=== PATIENT | female | born 1985 | race Caucasian/White ===

== ENCOUNTER 2020-09-18 18:45 | Inpatient (IN) | payer OTHER, SELFPAY ==
--- NOTE | ~2020-09-18 | XR_ITS ---
EXAMINATION: XR CHEST CLINICAL INFORMATION: Fever and cough COMPARISON: 01/03/2019 TECHNIQUE: Frontal view of the chest was obtained. FINDINGS: No significant abnormality is noted involving the heart, lungs, mediastinum, bony thorax or soft tissues. A bone island is seen in the left humeral head. XR/XR chest 1V IMPRESSION: Normal chest.
--- NOTE | ~2020-09-18 | NM_ITS ---
Indication: Upper abdominal pain, left upper quadrant pain EXAMINATION: HIDA scan. 5 mCi technetium mebrofenin. Imaging over the right upper quadrant. Correlating with CT dated 09/19/2020. Uptake by the liver is seen. There is some retention within the hepatic parenchyma on the 60 minute image. There is ductal activity by 5 minutes. Gallbladder activity is seen by 7 minutes. Bowel activity is seen by 12 minutes. NM/NM hepatobiliary wo pharm IMPRESSION: Visualization of the gallbladder. Therefore no scintigraphic evidence for cystic duct obstruction. There is felt to be retention in the hepatic parenchyma at 60 minutes.. Hepatocellular disease would be a consideration.
--- NOTE | ~2020-09-18 | CT_ITS ---
EXAMINATION: CT ABDOMEN AND PELVIS WITH CONTRAST CLINICAL INFORMATION: Pyelonephritis. Rule out obstruction.. COMPARISON: No pertinent prior studies are available for comparison TECHNIQUE: Multidetector volumetric imaging was performed from the lung bases to the pubic symphysis without contrast. Sagittal and coronal reformatted images were obtained on the technologist workstation. Total exam dose-length product 590 mGy-cm FINDINGS: VISUALIZED CHEST: Right basilar atelectasis. No pericardial or pleural effusion. LIVER, GALLBLADDER, AND BILIARY TREE: Liver spans 20.8 cm craniocaudal. No focal lesion seen. No intrahepatic biliary duct dilatation. The gallbladder is partially distended. There is gallbladder wall thickening/pericholecystic fluid. Echogenicity within the gallbladder lumen may reflect sludge or bile. No radiopaque gallstones are seen. PANCREAS: Homogeneous attenuation. No acute inflammatory changes seen. SPLEEN: Unremarkable. ADRENAL GLANDS: Unremarkable. KIDNEYS AND URETERS: 2 mm nonobstructing calculus in the midpole right kidney. Faint densities in the region of the renal pyramids bilaterally, could reflect medullary nephrocalcinosis. Stable amorphous density in the posterior aspect right kidney, 6 mm, could represent a cyst partially calcified calculus.. No hydronephrosis. The nondistended ureters are difficult to follow distally, but no calculi are identified in the expected course of the ureters. There is [id number] left perinephric stranding. GASTROINTESTINAL TRACT: Nonobstructive bowel gas pattern. No acute process identified associated with the bowel loops. Appendix appears unremarkable. Small ascites in the abdomen or pelvis. ABDOMINAL WALL: No hernia seen. LYMPHOVASCULAR STRUCTURES: No adenopathy is identified. BLADDER: No focal mass or wall thickening seen. No bladder calculi. PELVIC VISCERA: Within normal limits OSSEOUS STRUCTURES: No acute or suspicious osseous abnormality. CT/CT kidney stone IMPRESSION: 1. Right renal 2 mm nonobstructing calculus. Stable amorphous subtle calcification in the right kidney as well. Faint densities in the region of the renal pedicles bilaterally, could reflect medullary calcinosis. No hydronephrosis. No ureteral calculi seen. [id number] left perinephric stranding. 2. Hepatomegaly. 3. There is gallbladder wall thickening/pericholecystic fluid. Probable bile/sludge in the lumen.No radiodense calculi seen. Findings raise the possibility of cholecystitis. Recommend further evaluation with ultrasound.
[2020-09-18 19:11] VITALS: BP 87/57; BP 89/57; PULSE 102; PULSE 96; RESP 15; TEMP 38.5; O2SAT 98; BMI 25.8
--- NOTE | 2020-09-18 19:38 | ED_ITS ---
HPI - Fever General Chief Complaint: Fever Stated Complaint: fever,chills Time Seen by Provider: 09/18/20 19:35 Source: patient Mode of arrival: ambulatory Limitations: no limitations History of Present Illness HPI Narrative: 35-year-old female came in for evaluation of fever, and left flank pain. 35-year-old female with history of fever and infection came in with generalized body ache, generalized joint ache, fever, chills, left flank pain, patient with history of urinary tract infections in the past. Patient also been having generalized body ache, generalized fever, flu-like symptoms. Declined exposure to somebody is known to be sick call Related Data Home Medications Medication Instructions Recorded Confirmed aripiprazole 1 tab PO DAILY 09/18/20 09/18/20 clonazepam 1 tab PO QID PRN 09/18/20 09/18/20 diazepam 1 tab PO BID PRN 09/18/20 09/18/20 duloxetine 2 cap PO DAILY 09/18/20 09/18/20 fluticasone propionate [Flovent 2 puff INHALATION BID 09/18/20 09/18/20 HFA] lisdexamfetamine [Vyvanse] 1 cap PO QAM 09/18/20 09/18/20 oxcarbazepine 1 tab PO BID 09/18/20 09/18/20 quetiapine 200 tab PO BEDTIME 09/18/20 09/18/20 Allergies Allergy/AdvReac Type Severity Reaction Status Date / Time buprenorphine [From SUBOXONE] Allergy Intermediate ANXIETY Verified 09/18/20 19:21 naloxone [From SUBOXONE] Allergy Intermediate ANXIETY Verified 09/18/20 19:21 cefaclor [From CECLOR] Allergy Unknown UNKNOWN Verified 09/18/20 19:21 sulfamethoxazole Allergy Unknown UNKNOWN Verified 09/18/20 19:21 [From BACTRIM] trimethoprim [From BACTRIM] Allergy Unknown UNKNOWN Verified 09/18/20 19:21 Review of Systems Review of Systems: All other systems are reviewed and are negative Constitutional: Reports as per HPI and Reports no additional constitutional complaints Eyes: Reports as per HPI and Reports no additional eye complaints Reports system reviewed and no additional complaints, except as documented Cardiovascular: Reports as per HPI and Reports no additional cardiovascular complaints Respiratory: Reports as per HPI and Reports no additional respiratory complaints Gastrointestinal: Reports as per HPI and Reports no additional gastrointestinal complaints Genitourinary: Reports no additional female genitourinary complaints Musculoskeletal: Reports no additional musculoskeletal complaints Skin/Breast: Reports system reviewed and no additional complaints, except as docu Psychiatric: Reports no additional psychiatric complaints Endocrine: Reports no additional endocrine complaints Hematologic/Lymphatic: Reports no additional hematologic/lymphatic complaints Allergic/Immunologic: Reports no additional allergic/immunologic complaints Reports system reviewed and no additional complaints, except as documented and Reports Abnormal speech present [facility] Past Medical History Medical History Anxiety Bipolar 1 disorder Substance abuse Social History Social History Smoking Status: Never smoker Use of substances other than those prescribed or required for medical reasons: Yes Substance Use Type: Crack/Cocaine and Heroin Substance Use Frequency: Chronic Longstanding Last Used Substance: Hours (ago) Any prior treatment program specific to substance use: Yes Advance Directives: No Advance Directives Information Provided: Yes Physical Exam Vital Signs: Vital Signs: Last Vital Signs Temp 98.0 F 09/18/20 23:02 Pulse 92 09/18/20 23:02 Resp 93 H 09/18/20 23:02 BP 85/49 L 09/18/20 23:02 Pulse Ox 100 09/18/20 23:02 Body Mass Index 25.8 Vital signs have been reviewed as appeared to be correct. Blood pressure low. Heart rate elevated. Respiration rate normal. Temperature febrile. Oxygen saturation normal. Appearance: Alert. Oriented X3. No acute distress. Head: Normal external exam. Normocephalic. Atraumatic. No [place] signs noted. No raccoon eyes noted Eyes: PERRLA. EOMI. Conjunctiva and sclera normal. Eyelids normal. ENT: TM's Normal. Pharynx normal. Uvula midline. Moist mucous membranes. No trismus noted. No drooling noted. No muffled voice noted. Neck: Normal inspection. Neck supple. FROM. No adenopathy. Thyroid Normal. No meningeal signs. No neck mass noted. CVS: Normal heart rate and rhythm. Heart sound normal. No murmurs noted. Pulses normal throughout. Respiratory: No respiratory distress. Painless inspiration. Breath sounds normal. No wheezes/rales/rhonchi noted. Chest nontender. No accessory muscle usage noted or decreased air movement noted. Abdomen: Soft and nontender. Bowel sounds normal in all 4 quadrants. No dist ention noted. No organomegaly noted. No visible injury noted. Back: Left CVA tenderness. Full range of motion noted. Skin: Skin warm and dry. Normal skin color. Normal skin turgor. No rashes/le sions/lacerations noted. Extremities: No lower extremity edema. Extremities exhibit normal range of motion. Extremities nontender. Neuro: Oriented X 3. No motor deficit. No sensory deficit. Reflexes normal. Course Course Course Narrative: Assessment and plan. 35-year-old female came in with fever found to have left pyelonephritis and meeting criteria for SIRS. IV fluids/IV antibiotic/admit. Reevaluation(s) Reevaluation #1: Patient received 30 cc/kg of normal saline, still borderline hypotensive, lactic acid within normal, patient met criteria for SIRS with hypotension making the patient meeting criteria for severe sepsis. Because the hypotension patient will not be able to be on the floor will admit to ICU, the case discussed with Dr. hernandez who will admit the patient to ICU. I spent 60 minutes providing critical care service to the patient, this including time spent at the bedside to evaluate the patient, reassess the patient, monitoring vital signs, review labs, and radiographic studies, counseling the patient/family, discussing the case with consultants, disposition the patient. Time: 23:12 MDM - Fever Lab Data Attestation: I reviewed the patient's lab results. Result diagrams: 09/18/20 20:03 09/18/20 20:03 Labs: Lab Results 09/18/20 09/18/20 09/18/20 Range/Units 19:36 20:03 20:03 WBC 25.8 H (4.8-10.8) X10*3/uL RBC 4.51 (4.20-5.50) X10*6/uL Hgb 12.5 (12.0-16.0) g/dl Hct 38.3 (37-47) % MCV 84.9 (80-98) fL MCH 27.7 (27.0-33.0) pg MCHC 32.6 (31.0-35.0) g/dl RDW 12.3 (11.0-16.0) % Plt Count 239 (160-400) X10*3/uL MPV 11.3 (9.4-12.3) fL Immature Gran % (Auto) 1.5 H (0.0-0.4) % Neut % (Auto) 85.2 H (45-73) % Lymph % (Auto) 3.9 L (20-40) % Smyth % (Auto) 8.2 (2-11) % Eos % (Auto) 0.9 (0-4) % Baso % (Auto) 0.3 (0-2) % Lymph # (Auto) 1.0 L (1.2-4.9) X10*3/uL Smyth # (Auto) 2.1 H (0.1-1.2) X10*3/uL Eos # (Auto) 0.2 (0.0-0.4) X10*3/uL Baso # (Auto) 0.1 (0.0-0.2) X10*3/uL Abs Immat Gran (auto) 0.39 H (0.00-0.03) X10*3/uL Absolute Neuts (auto) 22.0 H (2.0-8.3) X10*3/uL Absolute Nucleated RBC 0.000 (0.0-0.012) X10*3/uL Nucleated RBC % (auto) 0.0 (0.0-0.2) /100WBC Smear Tech's Comments VERIFIED Sodium 134 L (135-145) mmol/L Potassium 3.6 (3.3-5.1) mmol/L Chloride 102 (96-108) mmol/L Carbon Dioxide 24 (22-29) mmol/L Anion Gap 12 (12-20) BUN 13 (9-16) mg/dL Creatinine 1.11 (0.5-1.4) mg/dL Estim Creat Clear Calc 72.8 Estimated GFR 56 Random Glucose 122 H (60-115) mg/dL Lactic Acid (0.5-2.0) mmol/L Calcium 8.4 (8.4-10.2) mg/dL Total Bilirubin 0.5 (0.0-1.0) mg/dL Direct Bilirubin 0.3 (0.0-0.5) mg/dL AST 13 (5-31) U/L ALT 9 (0-31) U/L Alkaline Phosphatase 68 (39-117) U/L Total Protein 6.9 (6.5-8.0) g/dL Albumin 3.8 (3.5-5.0) g/dL Lipase 24 (8-78) U/L Urine Color YELLOW Urine Appearance CLOUDY Urine pH 5.5 (5.0-8.0) Ur Specific [place] 1.025 (1.005-1.025) Urine Protein 2+ H (NEG-TRACE) MG/DL Urine Glucose (UA) NEG (NEG) MG/DL Urine Ketones NEG (NEG) MG/DL Urine Blood 1+ H (NEG) Urine Nitrite NEG (NEG) Ur Leukocyte Esterase 2+ H (NEG) Urine RBC 0-2 (0) /HPF Urine WBC 30-49 H (0-4) /HPF Ur Squamous Epith Cells 1+ /LPF Urine Bacteria 3+ /LPF Coronavirus (PCR) (Negative) Influenza Type A (PCR) (Negative) Influenza Type B (PCR) (Negative) RSV RNA Qual (PCR) (Negative) 09/18/20 09/18/20 Range/Units 20:03 20:03 WBC (4.8-10.8) X10*3/uL RBC (4.20-5.50) X10*6/uL Hgb (12.0-16.0) g/dl Hct (37-47) % MCV (80-98) fL MCH (27.0-33.0) pg MCHC (31.0-35.0) g/dl RDW (11.0-16.0) % Plt Count (160-400) X10*3/uL MPV (9.4-12.3) fL Immature Gran % (Auto) (0.0-0.4) % Neut % (Auto) (45-73) % Lymph % (Auto) (20-40) % Smyth % (Auto) (2-11) % Eos % (Auto) (0-4) % Baso % (Auto) (0-2) % Lymph # (Auto) (1.2-4.9) X10*3/uL [place]th # (Auto) (0.1-1.2) X10*3/uL Eos # (Auto) (0.0-0.4) X10*3/uL Baso # (Auto) (0.0-0.2) X10*3/uL Abs Immat Gran (auto) (0.00-0.03) X10*3/uL Absolute Neuts (auto) (2.0-8.3) X10*3/uL Absolute Nucleated RBC (0.0-0.012) X10*3/uL Nucleated RBC % (auto) (0.0-0.2) /100WBC Smear Tech's Comments Sodium (135-145) mmol/L Potassium (3.3-5.1) mmol/L Chloride (96-108) mmol/L Carbon Dioxide (22-29) mmol/L Anion Gap (12-20) BUN (9-16) mg/dL Creatinine (0.5-1.4) mg/dL Estim Creat Clear Calc Estimated GFR Random Glucose (60-115) mg/dL Lactic Acid 1.5 (0.5-2.0) mmol/L Calcium (8.4-10.2) mg/dL Total Bilirubin (0.0-1.0) mg/dL Direct Bilirubin (0.0-0.5) mg/dL AST (5-31) U/L ALT (0-31) U/L Alkaline Phosphatase (39-117) U/L Total Protein (6.5-8.0) g/dL Albumin (3.5-5.0) g/dL Lipase (8-78) U/L Urine Color Urine Appearance Urine pH (5.0-8.0) Ur Specific [place] (1.005-1.025) Urine Protein (NEG-TRACE) MG/DL Urine Glucose (UA) (NEG) MG/DL Urine Ketones (NEG) MG/DL Urine Blood (NEG) Urine Nitrite (NEG) Ur Leukocyte Esterase (NEG) Urine RBC (0) /HPF Urine WBC (0-4) /HPF Ur Squamous Epith Cells /LPF Urine Bacteria /LPF Coronavirus (PCR) NEGATIVE (Negative) Influenza Type A (PCR) NEGATIVE (Negative) Influenza Type B (PCR) NEGATIVE (Negative) RSV RNA Qual (PCR) NEGATIVE (Negative) Imaging Data Chest x-ray: Radiologist's impression: No acute pathology. Discharge Plan Discharge Clinical Impression: Pyelonephritis Patient Disposition: Admitted As Inpatient
[2020-09-18 19:44] LABS: Glucose Urine UA NEG (NEG); Leukocyte Esterase Urine 2+ (NEG); Nitrite Urine NEG (NEG); PH 5.5 (5.0-8.0); Specific Gravity - Urine 1.025 (1.005-1.025); Urine Blood 1+ (NEG); Urine Ketones NEG (NEG); Urine Protein 2+ MG/DL (NEG-TRACE)
[2020-09-18 19:46] LABS: Appearance Urine CLOUDY; Color Urine YELLOW
[2020-09-18 19:57] LABS: Bacteria Urine 3+ /LPF; RBC Urine 0-2 /HPF (0); Squamous Epithelial Cell Urine 1+ /LPF; WBC Urine 30-49 /HPF (0-4)
[2020-09-18] MEDS: cefTRIAXone sodium 1 GM in 0.9 % Sodium Chloride 50 ML IV (20:10)
[2020-09-18] MEDS: 0.9 % Sodium Chloride 1,000 ML 999 ML IVCONT (20:10)
[2020-09-18 20:12] LABS: Basophils Absolute Auto 0.1 X10*3/uL (0.0-0.2); Basophils Percent Auto 0.3 % (0-2); Eosinophils Absolute Auto 0.2 X10*3/uL (0.0-0.4); Eosinophils Percent Auto 0.9 % (0-4); Hematocrit 38.3 % (37-47); Hemoglobin 12.5 g/dl (12.0-16.0); Imm Gran Abs Auto 0.39 X10*3/uL (0.00-0.03); Imm Gran Pct Auto 1.5 % (0.0-0.4); Lymphocytes Percent Auto 3.9 % (20-40); MANUAL DIFF FLAG SCAN; Mean Corpuscular HGB Conc 32.6 g/dl (31.0-35.0); Mean Corpuscular Hemoglobin 27.7 pg (27.0-33.0); Mean Corpuscular Volume 84.9 fL (80-98); Mean Platelet Volume 11.3 fL (9.4-12.3); Monocytes Absolute Auto 2.1 X10*3/uL (0.1-1.2); Monocytes Percent Auto 8.2 % (2-11); Neutrophils Percent Auto 85.2 % (45-73); Platelet Count 239 X10*3/uL (160-400); Red Blood Count 4.51 X10*6/uL (4.20-5.50); Red Cell Distribution Width 12.3 % (11.0-16.0); SCAN SMEAR FLAG 1; White Blood Count 25.8 X10*3/uL (4.8-10.8)
--- NOTE | 2020-09-18 20:19 | PC.NURSE ---
Patient lined, lab'd and medication given per emar as noted.
[2020-09-18 20:29] LABS: SLIDE REVIEW VERIFIED
[2020-09-18 20:35] LABS: Lactic Acid 1.5 mmol/L (0.5-2.0)
[2020-09-18 20:40] LABS: Alanine Aminotransferase 9 U/L (0-31); Albumin Level 3.8 g/dL (3.5-5.0); Alkaline Phosphatase 68 U/L (39-117); Anion Gap 12 (12-20); Aspartate Amino Transferase 13 U/L (5-31); Bilirubin Direct 0.3 mg/dL (0.0-0.5); Bilirubin Total 0.5 mg/dL (0.0-1.0); Blood Urea Nitrogen 13 mg/dL (9-16); Calcium 8.4 mg/dL (8.4-10.2); Carbon Dioxide 24 mmol/L (22-29); Chloride 102 mmol/L (96-108); Creatinine Clr Calc Pharmacy 72.8; Estimated Glomerular Filt Rate 56; Glucose Random 122 mg/dL (60-115); Lipase 24 U/L (8-78); Potassium 3.6 mmol/L (3.3-5.1); Sodium 134 mmol/L (135-145); Total Protein 6.9 g/dL (6.5-8.0)
[2020-09-18 20:50] LABS: Influenza A PCR NEGATIVE (Negative); Influenza B PCR NEGATIVE (Negative); Resp Syncy Virus RNA Qual PCR NEGATIVE (Negative); SARS COV2 PCR INHOUSE NEGATIVE (Negative)
--- NOTE | 2020-09-18 21:21 | PC.NURSE ---
PATIENT'S MOTHER CALLS AT THIS TIME FOR UPDATE. ANU BLAKE INDISPOSED. CALL BACK NUMBER LEFT WITH THIS US AND PATIENT'S MOTHER EXPECTING CALL BACK. ANABELLE TYSON
[2020-09-18 21:27] VITALS: BP 90/63; PULSE 99; RESP 15; O2SAT 98
[2020-09-18] MEDS: 0.9 % Sodium Chloride 2,177.25 ML 2177.25 ML IVCONT (21:51)
[2020-09-18 22:57] VITALS: BP 85/49; PULSE 92; RESP 93; TEMP 36.7; O2SAT 100
[2020-09-18 23:02] VITALS: BP 85/49; PULSE 92; RESP 93; TEMP 36.7; O2SAT 100
[2020-09-18 23:30] VITALS: BP 79/43; PULSE 92; RESP 15; O2SAT 98
[2020-09-18] MEDS: Ketorolac Tromethamine 15 MG/ML VIAL IV (23:30)
--- NOTE | 2020-09-18 23:36 | P.HPCC_ITS ---
History of Present Illness Date of Service: 09/18/20 Chief Complaint: Fever Patient is a 35-year-old female with a past medical history anxiety, bipolar disorder and substance use disorder of injecting heroin and smoking crack, last use was approximately noontime on 09/18, who presented to the ER earlier this evening stating she had 1 day of fever, chills, left back and flank pain, body aches, nausea and flu-like symptoms. Patient denies vomiting, shortness of breath, chest pain, abdominal pain, or sick/COVID contacts. 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 In the emergency department, the patient was found to be hypotensive in the 70s to 80s systolic, temp 101.3F, WBC 25.8, urine positive for UA as well as opiates, acetaminophen, benzos and cocaine. Patient tested as COVID negative. Patient was given sepsis fluids and antibiotics, patient's blood pressure was still low despite fluid resuscitation. Lactic acid 1.5. Upon my exam, pt's systolic BP was in the 70's, she was asymptomatic and reporti ng 7/10 back/left flank pain. She reports last injection of heroin was at noon time today. She is very concerned about withdrawing while she is here. Physical exam is unremarkable sans slight suprapubic tenderness. She states she takes benzos, our records indicate at her last admission she was taking 10 mg diazepam b.i.d. but she states she does not take it every day because it makes her feel like a zombie. Will admit to the ICU for management of hypotension/sepsis. Review of Systems Review of Systems: Yes all other systems are reviewed and are negative [facility] Past Medical History Medical History Anxiety Bipolar 1 disorder Substance abuse Social History Social History (Updated 09/18/20 @ 23:45 by Verenice Mcdowell PA-C) Alcohol intake: never Smoking Status: Never smoker Use of substances other than those prescribed or required for medical reasons: Yes Substance Use Type: Crack/Cocaine and Heroin Substance Use Frequency: Chronic Longstanding Last Used Substance: Hours (ago) Any prior treatment program specific to substance use: Yes Advance Directives: No Advance Directives Information Provided: Yes Meds Allergies Allergy/AdvReac Type Severity Reaction Status Date / Time buprenorphine [From SUBOXONE] Allergy Intermediate ANXIETY Verified 09/18/20 19:21 naloxone [From SUBOXONE] Allergy Intermediate ANXIETY Verified 09/18/20 19:21 cefaclor [From CECLOR] Allergy Unknown UNKNOWN Verified 09/18/20 19:21 sulfamethoxazole Allergy Unknown UNKNOWN Verified 09/18/20 19:21 [From BACTRIM] trimethoprim [From BACTRIM] Allergy Unknown UNKNOWN Verified 09/18/20 19:21 Home Medications Medication Instructions Recorded Confirmed Last Taken Type aripiprazole 1 tab PO DAILY 09/18/20 09/18/20 Unknown History clonazepam 1 tab PO QID PRN 09/18/20 09/18/20 Unknown History diazepam 1 tab PO BID PRN 09/18/20 09/18/20 Unknown History duloxetine 2 cap PO DAILY 09/18/20 09/18/20 Unknown History fluticasone propionate [Flovent 2 puff INHALATION BID 09/18/20 09/18/20 Unknown History HFA] lisdexamfetamine [Vyvanse] 1 cap PO QAM 09/18/20 09/18/20 Unknown History oxcarbazepine 1 tab PO BID 09/18/20 09/18/20 Unknown History quetiapine 200 tab PO BEDTIME 09/18/20 09/18/20 Unknown History Physical Exam Vital Signs: Vital Signs: Last Vital Signs Temp 98.0 F 09/18/20 23:02 Pulse 92 09/18/20 23:02 Resp 93 H 09/18/20 23:02 BP 85/49 L 09/18/20 23:02 Pulse Ox 100 09/18/20 23:02 Body Mass Index 25.8 Const: General: cooperative, healthy appearing, no acute distress, well developed and tired appearing (teary 2/2 pain) Nutritional Appearance: average body habitus Orientation/consciousness: patient oriented x3 Limitations: no limitations HENMT: Head: Yes normal to inspection Eyes: General: appearance normal, both eyes and all related structures Neck: Neck: Yes normal visual inspection and Yes full ROM Resp: Effort & Inspection: normal respiratory effort and able to speak in complete sentences Auscultation: clear to auscultation bilaterally Cardio: Rate: regular rate Rhythm: regular rhythm Heart sounds: normal S1 and S2 GI: Inspection: Yes normal to inspection Palpation (GI): Soft to palpation and nontender Skin: General skin exam: no rashes or lesions noted Neuro: General: patient oriented x3 Extrem: General: Yes normal to inspection and Yes no pedal edema Results Labs CBC and Chem 7: 09/18/20 20:03 09/18/20 20:03 Labs: Laboratory Results - last 24 hr 09/18/20 09/18/20 09/18/20 19:36 20:03 20:03 MCV 84.9 MCH 27.7 MCHC 32.6 RDW 12.3 Plt Count 239 MPV 11.3 Immature Gran % (Auto) 1.5 H Neut % (Auto) 85.2 H Lymph % (Auto) 3.9 L [place]are % (Auto) 8.2 Eos % (Auto) 0.9 Baso % (Auto) 0.3 Lymph # (Auto) 1.0 L [place] # (Auto) 2.1 H Eos # (Auto) 0.2 Baso # (Auto) 0.1 Abs Immat Gran (auto) 0.39 H Absolute Neuts (auto) 22.0 H Absolute Nucleated RBC 0.000 Nucleated RBC % (auto) 0.0 Smear Tech's Comments VERIFIED Anion Gap 12 Estim Creat Clear Calc 72.8 Estimated GFR 56 Random Glucose 122 H Lactic Acid Calcium 8.4 Total Bilirubin 0.5 Direct Bilirubin 0.3 AST 13 ALT 9 Alkaline Phosphatase 68 Total Protein 6.9 Albumin 3.8 Lipase 24 Urine Color YELLOW Urine Appearance CLOUDY Urine pH 5.5 Ur Specific [place] 1.025 Urine Protein 2+ H Urine Glucose (UA) NEG Urine Ketones NEG Urine Blood 1+ H Urine Nitrite NEG Ur Leukocyte Esterase 2+ H Urine RBC 0-2 Urine WBC 30-49 H Ur Squamous Epith Cells 1+ Urine Bacteria 3+ Coronavirus (PCR) Influenza Type A (PCR) Influenza Type B (PCR) RSV RNA Qual (PCR) 09/18/20 09/18/20 20:03 20:03 MCV MCH MCHC RDW Plt Count MPV Immature Gran % (Auto) Neut % (Auto) Lymph % (Auto) Dare % (Auto) Eos % (Auto) Baso % (Auto) Lymph # (Auto) Dare # (Auto) Eos # (Auto) Baso # (Auto) Abs Immat Gran (auto) Absolute Neuts (auto) Absolute Nucleated RBC Nucleated RBC % (auto) Smear Tech's Comments Anion Gap Estim Creat Clear Calc Estimated GFR Random Glucose Lactic Acid 1.5 Calcium Total Bilirubin Direct Bilirubin AST ALT Alkaline Phosphatase Total Protein Albumin Lipase Urine Color Urine Appearance Urine pH Ur Specific [place] Urine Protein Urine Glucose (UA) Urine Ketones Urine Blood Urine Nitrite Ur Leukocyte Esterase Urine RBC Urine WBC Ur Squamous Epith Cells Urine Bacteria Coronavirus (PCR) NEGATIVE Influenza Type A (PCR) NEGATIVE Influenza Type B (PCR) NEGATIVE RSV RNA Qual (PCR) NEGATIVE Imaging Radiologist's Impressions: Impressions Chest X-Ray 09/18/20 19:35 IMPRESSION: Normal chest. Assessment and Plan (1) Pyelonephritis: Status: Acute Pt given 1gm ceftriaxone in ED, will continue Q24H (2) Hypotension: Status: Acute Will continue IV fluids and add felicita-synephrine until BP stabilized. (3) Heroin abuse: Status: Acute
[2020-09-19] VITALS (30 sets, daily range): BP systolic 82–121; BP diastolic 47–83; PULSE 71–106; RESP 13–43; TEMP 36.2–38.7; O2SAT 96–100; BMI 29.5; BMI 30.9
[2020-09-19 00:13] LABS: Amphetamine Screen Urine Not Detected (Not Detect); Barbiturates, Urine Not Detected (Not Detect); Benzodiazepines Screen Urine POSITIVE (Not Detect); Cannabinoid Screen Urine Not Detected (Not Detect); Cocaine Screen Urine POSITIVE (Not Detect); Opiate Screen Urine POSITIVE (Not Detect); Phencyclidine Screen Urine Not Detected (Not Detect)
[2020-09-19] MEDS: Lactated Ringers 1,000 ML 150 ML IVCONT ×4 (00:48→20:06)
[2020-09-19] MEDS: Phenylephrine HCL 20 MG in 0.9 % Sodium Chloride 250 ML 16.46 MG IVCONT (00:49)
[2020-09-19] MEDS: HYDROmorphone HCl 0.5 MG/0.5 ML SYRINGE IVPUSH ×3 (01:58→20:07)
[2020-09-19] MEDS: DULoxetine HCl 60 MG CAPSULE.DR PO ×3 (01:59→22:53)
[2020-09-19] MEDS: OXcarbazepine 300 MG TABLET 600 MG PO ×3 (02:10→20:10)
[2020-09-19] MEDS: QUEtiapine Fumarate 200 MG TABLET PO (02:10)
[2020-09-19 05:54] LABS: Basophils Absolute Auto 0.1 X10*3/uL (0.0-0.2); Basophils Percent Auto 0.4 % (0-2); Hematocrit 37.1 % (37-47); Hemoglobin 12.1 g/dl (12.0-16.0); Imm Gran Abs Auto 1.71 X10*3/uL (0.00-0.03); Lymphocytes Absolute Auto 1.9 X10*3/uL (1.2-4.9); Lymphocytes Percent Auto 5.7 % (20-40); MANUAL DIFF FLAG SCAN; Mean Corpuscular HGB Conc 32.6 g/dl (31.0-35.0); Mean Corpuscular Hemoglobin 28.3 pg (27.0-33.0); Mean Corpuscular Volume 86.9 fL (80-98); Mean Platelet Volume 11.9 fL (9.4-12.3); Monocytes Absolute Auto 2.5 X10*3/uL (0.1-1.2); Monocytes Percent Auto 7.4 % (2-11); Neutrophils Absolute Auto 27.8 X10*3/uL (2.0-8.3); Neutrophils Percent Auto 81.5 % (45-73); Platelet Count 242 X10*3/uL (160-400); Red Blood Count 4.27 X10*6/uL (4.20-5.50); Red Cell Distribution Width 12.6 % (11.0-16.0); SCAN SMEAR FLAG 1
[2020-09-19 05:58] LABS: White Blood Count 34.1 X10*3/uL (4.8-10.8)
[2020-09-19 06:20] LABS: Anion Gap 14 (12-20); Blood Urea Nitrogen 14 mg/dL (9-16); Calcium 7.6 mg/dL (8.4-10.2); Carbon Dioxide 20 mmol/L (22-29); Chloride 107 mmol/L (96-108); Creatinine Clr Calc Pharmacy 90.5; Estimated Glomerular Filt Rate > 60; Glucose Random 92 mg/dL (60-115); Magnesium 1.8 mg/dL (1.6-2.6); Phosphorus 2.6 mg/dL (2.7-4.5); Potassium 4.1 mmol/L (3.3-5.1); Sodium 137 mmol/L (135-145)
[2020-09-19] MEDS: Phenylephrine HCL 20 MG in 0.9 % Sodium Chloride 250 ML 27.43 MG IVCONT (06:20)
--- NOTE | 2020-09-19 06:29 | PC.NURSE ---
ADMIT TO 260-1 APPROX 00:30...AWAKE...ALERT..ORIENTED X3...SPEECH CLEAR....NSR..NO ECTOPY..RESPIRATIONS EASY...SAO2 99-100% ROOM AIR...SBP REMAINED 80'S DESPITE PREVIOUS IV BOLUSES IN ER DEPT...STARTED LR 150 CC/HR AND NEOSYNEPHRINE STARTED/TITRATED TO 0.5 MCG/KG/MIN...SBP 100'S-110'S AWAKE WITH PRESSOR...SBP 90'S ASLEEP...C/O BILATERAL FLANK PAIN AT ADMIT DESPITE PREVIOUS RECEIPT TORADOL IN ER DEPT...ALSO C/O CHRONIC ANXIETY...MEDICATED DILAUDID 0.5 MG IV X1 AND RECEIVED SEROQUEL/CYMBALTA/TRILEPTAL PER ICU PA...SLEPT X3 HOURS..AWAKE..ALERT THIS AM...HNV...OOB TO COMMODE W/O VOID...BACK TO BED..BLADDER SCANNED 425ml...also c/o persistant fland/abdominal 8-9/10 pain...repeat dilaudid 0.5mg iv given...PA AWARE OF BLADDER SCAN RESULTS...SMITH CATHETER ORDERED TO BE INSERTED IF REMAINS UNABLE TO VOID NEXT FEW HOURS...PATIENT REQUESTED TO DELAY SMITH INSERTION AT PRESENT BUT WILL ACCEPT IF REMAINS UNABLE TO VOID...AM WBC=34.1...PA/ AWARE
[2020-09-19 07:29] LABS: SLIDE REVIEW VERIFIED
[2020-09-19] MEDS: Ketorolac Tromethamine 15 MG/ML VIAL IVPUSH ×2 (07:48→16:31)
[2020-09-19] MEDS: levoFLOXacin/D5W 750 MG/150 ML PIGGYBACK 100 MG IV (09:03)
[2020-09-19] MEDS: HYDROmorphone HCl 1 MG/ML SYRINGE IVPUSH ×2 (09:14→13:15)
--- NOTE | 2020-09-19 09:54 | PC.NURSE ---
Pt started on IV levaquin this mroning. While running or ~5min pt noticed some redness at IV site and up arm. IV site is new from this AM, nothing else had run in. Levaquin immediately stopped. IV site assessed, Meaured [id number] red rashy area with some hives noted. notified - d/c the abx. Will continuously monitor site
--- NOTE | 2020-09-19 10:59 | PC.NURSE ---
pt mother [place] # [phone] - pt AO and will check with pt before any info shared, but wanted record of # on file
[2020-09-19] MEDS: cefTRIAXone sodium 2 GM in 0.9 % Sodium Chloride 50 ML IV (11:30)
[2020-09-19 11:36] LABS: Alanine Aminotransferase 9 U/L (0-31); Albumin Level 3.1 g/dL (3.5-5.0); Alkaline Phosphatase 71 U/L (39-117); Aspartate Amino Transferase 15 U/L (5-31); Bilirubin Direct 0.4 mg/dL (0.0-0.5); Bilirubin Total 0.6 mg/dL (0.0-1.0); Total Protein 5.8 g/dL (6.5-8.0)
--- NOTE | 2020-09-19 12:41 | P.CONGS_ITS ---
History of Present Illness Consult details Consult date: 09/19/20 Reason for consult: abdominal pain (Abnormal gallbladder imaging) Narrative: This is a 35-year-old female who presented to the emergency department with a 3 day history of a severe back pain primarily in the left flank radiating around the left upper quadrant. She describes generalized body aches, fever and chills as well as malaise. She also has experienced nausea without vomiting. She does not describe dysuria. She reports having similar pain once in the past related to her kidney. She has a history of substance use, in remission. In the emergency department, urinalysis was done and was consistent with urinary tract infection. Exam findings were consistent with pyelonephritis and she was admitted for treatment. She was noted to have hypotension. White blood count was 25.8 and is further elevated this morning at 34.1. Liver function studies are normal. A CT scan of the abdomen and pelvis was obtained and revealed thickening of the gallbladder wall without clear evidence of gallstones. Review of Systems Constitutional: Constitutional: Reports chills and Reports fever(s) Comments: Malaise ENT: Denies dizziness and Denies neck pain Cardiovascular: Cardiovascular: Denies chest pain, Denies palpitations and Denies dyspnea Respiratory: Respiratory: Denies cough and Denies dyspnea Gastrointestinal: Gastrointestinal: Reports as per HPI Genitourinary: Genitourinary: Reports flank pain (left) Musculoskeletal: Musculoskeletal: Reports no additional musculoskeletal complaints and Denies neck pain Neurologic: Denies dizziness Psychiatric: Comments: depression, anxiety Endocrine: Endocrine: Denies palpitations Hematologic/Lymphatic: Hematologic/Lymphatic: Reports no additional hematologic/lymphatic complaints [facility] Past Medical History Medical History Anxiety Bipolar 1 disorder Substance abuse Social History Social History (Updated 09/18/20 @ 23:45 by Verenice Mcdowell PA-C) Alcohol intake: never Smoking Status: Never smoker Use of substances other than those prescribed or required for medical reasons: Yes Substance Use Type: Crack/Cocaine and Heroin Substance Use Frequency: Chronic Longstanding Last Used Substance: Hours (ago) Currently Displaying Signs/Symptoms of Drug Intoxication Withdrawal: No Any prior treatment program specific to substance use: Yes Advance Directives: No Advance Directives Information Provided: Yes Do you have thoughts of harming others: None Do you have a plan to hurt others: No Plan Meds Allergies Allergy/AdvReac Type Severity Reaction Status Date / Time buprenorphine [From SUBOXONE] Allergy Intermediate ANXIETY Verified 09/18/20 19:21 levofloxacin [From Levaquin] Allergy Intermediate Hives Verified 09/19/20 11:14 naloxone [From SUBOXONE] Allergy Intermediate ANXIETY Verified 09/18/20 19:21 cefaclor [From CECLOR] Allergy Unknown UNKNOWN Verified 09/18/20 19:21 sulfamethoxazole Allergy Unknown UNKNOWN Verified 09/18/20 19:21 [From BACTRIM] trimethoprim [From BACTRIM] Allergy Unknown UNKNOWN Verified 09/18/20 19:21 Active Medications: Current Medications Generic Name Dose Route Start Last Admin Trade Name Freq PRN Reason Stop Dose Admin Duloxetine HCl 60 mg 09/19/20 01:20 09/19/20 09:07 Duloxetine Hcl 60 Mg Capsule. PO 60 mg DAILY SEBAS Administration Hydromorphone HCl 1 mg 09/19/20 08:23 09/19/20 09:14 Hydromorphone Hcl 1 Mg/Ml Syringe IVPUSH 1 mg Q4H PRN Administration Pain, Severe (Pain Scale 7-10) Lactated Ringer's 1,000 mls @ 150 mls/hr 09/18/20 23:45 09/19/20 12:30 Lr IVCONT 150 mls/hr .Q6H40M SEBAS Administration Phenylephrine HCl 20 mg/ 252 mls @ 0 mls/hr 09/18/20 23:45 09/19/20 10:47 Sodium Chloride IVCONT 0.3 mcg/kg/min .Q0M SEBAS 16.46 mls/hr Titration Protocol Per Protocol Ceftriaxone Sodium 2 gm/ 50 mls @ 100 mls/hr 09/19/20 11:15 09/19/20 12:28 Sodium Chloride IV Infused Q24H SEBAS Infusion Metronidazole 1,000 mg in 200 mls @ 100 mls/hr 09/19/20 12:00 09/19/20 12:04 Flagyl IV 100 mls/hr Q12H SEBAS Administration Ketorolac Tromethamine 15 mg 09/19/20 07:09 09/19/20 07:48 Ketorolac Tromethamine 15 Mg/Ml Vial IVPUSH 15 mg Q6H PRN Administration Pain, Severe (Pain Scale 7-10) Oxcarbazepine 600 mg 09/19/20 01:15 09/19/20 09:07 Oxcarbazepine 300 Mg Tablet PO 600 mg BID SEBAS Administration Home Medications Medication Instructions Recorded Confirmed Last Taken Type aripiprazole 1 tab PO DAILY 09/18/20 09/18/20 Unknown History clonazepam 1 tab PO QID PRN 09/18/20 09/18/20 Unknown History diazepam 1 tab PO BID PRN 09/18/20 09/18/20 Unknown History duloxetine 2 cap PO DAILY 09/18/20 09/18/20 Unknown History fluticasone propionate [Flovent 2 puff INHALATION BID 09/18/20 09/18/20 Unknown History HFA] lisdexamfetamine [Vyvanse] 1 cap PO QAM 09/18/20 09/18/20 Unknown History oxcarbazepine 1 tab PO BID 09/18/20 09/18/20 Unknown History quetiapine 150 mg PO BEDTIME 09/18/20 09/19/20 Unknown History Physical Exam Vital Signs: Vital Signs: Last Vital Signs Temp 98.1 F 09/19/20 12:31 Pulse 96 09/19/20 12:31 Resp 28 H 09/19/20 12:31 BP 101/57 L 09/19/20 12:31 Pulse Ox 100 09/19/20 12:31 Body Mass Index 30.9 Const: General: cooperative and alert Orientation/consciousness: patient oriented x3 HENMT: Head: Yes normal to inspection Ears: hearing grossly normal bilaterally Neck: Neck: Yes normal visual inspection Resp: Effort & Inspection: normal respiratory effort Auscultation: clear to auscultation bilaterally Cardio: Rate: regular rate Rhythm: regular rhythm GI: Other: soft, nondistended, tender LUQ ands flank Rectal Exam - Female: deferred Skin: Other: normal color, warm and dry Neuro: General: patient oriented x3 Results Labs Result diagrams: 09/19/20 05:30 09/19/20 05:30 Labs: Abnormal lab results 09/18/20 09/18/20 09/18/20 Range/Units 19:36 19:36 20:03 WBC 25.8 H (4.8-10.8) X10*3/uL Immature Gran % (Auto) 1.5 H (0.0-0.4) % Neut % (Auto) 85.2 H (45-73) % Lymph % (Auto) 3.9 L (20-40) % Lymph # (Auto) 1.0 L (1.2-4.9) X10*3/uL [place] # (Auto) 2.1 H (0.1-1.2) X10*3/uL Abs Immat Gran (auto) 0.39 H (0.00-0.03) X10*3/uL Absolute Neuts (auto) 22.0 H (2.0-8.3) X10*3/uL Sodium (135-145) mmol/L Carbon Dioxide (22-29) mmol/L Random Glucose (60-115) mg/dL Calcium (8.4-10.2) mg/dL Phosphorus (2.7-4.5) mg/dL Total Protein (6.5-8.0) g/dL Albumin (3.5-5.0) g/dL Urine Protein 2+ H (NEG-TRACE) MG/DL Urine Blood 1+ H (NEG) Ur Leukocyte Esterase 2+ H (NEG) Urine WBC 30-49 H (0-4) /HPF Urine Opiates Screen POSITIVE H (Not Detect) U Benzodiazepines Scrn POSITIVE H (Not Detect) Urine Cocaine Screen POSITIVE H (Not Detect) 09/18/20 09/19/20 09/19/20 Range/Units 20:03 05:30 05:30 WBC 34.1 H* (4.8-10.8) X10*3/uL Immature Gran % (Auto) 5.0 H (0.0-0.4) % Neut % (Auto) 81.5 H (45-73) % Lymph % (Auto) 5.7 L (20-40) % Lymph # (Auto) (1.2-4.9) X10*3/uL [place] # (Auto) 2.5 H (0.1-1.2) X10*3/uL Abs Immat Gran (auto) 1.71 H (0.00-0.03) X10*3/uL Absolute Neuts (auto) 27.8 H (2.0-8.3) X10*3/uL Sodium 134 L (135-145) mmol/L Carbon Dioxide 20 L (22-29) mmol/L Random Glucose 122 H (60-115) mg/dL Calcium 7.6 L D (8.4-10.2) mg/dL Phosphorus 2.6 L (2.7-4.5) mg/dL Total Protein 5.8 L (6.5-8.0) g/dL Albumin 3.1 L (3.5-5.0) g/dL Urine Protein (NEG-TRACE) MG/DL Urine Blood (NEG) Ur Leukocyte Esterase (NEG) Urine WBC (0-4) /HPF Urine Opiates Screen (Not Detect) U Benzodiazepines Scrn (Not Detect) Urine Cocaine Screen (Not Detect) Short CBC 09/18/20 09/19/20 Range/Units 20:03 05:30 WBC 25.8 H 34.1 H* (4.8-10.8) X10*3/uL Hgb 12.5 12.1 (12.0-16.0) g/dl Hct 38.3 37.1 (37-47) % Plt Count 239 242 (160-400) X10*3/uL BMP 09/18/20 09/19/20 20:03 05:30 Sodium 134 L 137 Potassium 3.6 4.1 Chloride 102 107 Carbon Dioxide 24 20 L BUN 13 14 Creatinine 1.11 0.95 Calcium 8.4 7.6 L D Liver Function 09/18/20 09/19/20 Range/Units 20:03 05:30 Total Bilirubin 0.5 0.6 (0.0-1.0) mg/dL Direct Bilirubin 0.3 0.4 (0.0-0.5) mg/dL AST 13 15 (5-31) U/L ALT 9 9 (0-31) U/L Alkaline Phosphatase 68 71 (39-117) U/L Albumin 3.8 3.1 L (3.5-5.0) g/dL Urine 09/18/20 Range/Units 19:36 Urine Color YELLOW Urine Appearance CLOUDY Urine pH 5.5 (5.0-8.0) Ur Specific [place] 1.025 (1.005-1.025) Urine Protein 2+ H (NEG-TRACE) MG/DL Urine Glucose (UA) NEG (NEG) MG/DL All other labs normal. Assessment and Plan (1) Abnormal findings on diagnostic imaging of abdomen: Status: Acute 35-year-old female with several-day history of back and left upper quadrant abdominal pain, fever chills and nausea. Urinalysis is suggestive of urinary tract infection. Exam findings are suggestive of pyelonephritis on left. CT of the abdomen and pelvis demonstrates an abnormal appearing gallbladder. She does not have accompanying right upper quadrant tenderness or pain. Further evaluation will be obtained with HIDA scan.
[2020-09-19] MEDS: HYDROmorphone HCl 2 MG/ML VIAL IVPUSH ×3 (13:48→23:59)
--- NOTE | 2020-09-19 15:01 | MHC.CM.PN ---
Addendum entered by Karen Rowe 09/19/20 15:15: Review of EMR notes pt has an active hx of substance use (heroin, cocaine) Will f/u should pt need a CARE team consult for cessation information and treatment options Original Note: Pt in ICU with hypotension and pyelonephritis: met with pt briefly as she was on her way to diagnostic testing: Pt was independent prior to admission: no adaptive equipment used: Has transportation. No additional services anticipated but CM will follow for any changes.
--- NOTE | 2020-09-19 16:07 | PC.NURSE ---
Addendum entered by Arlen Smith RN 09/19/20 18:53: temp down to 97.1 at 1845 Original Note: Pt off phenylephrine at 15:48 as MAP >65 per order. Will closely monitor BP q30min MD aware of drip status Also pt temp 101.7 at 1600 VS - pt had three blankets on - 2 removed - MD would like to keep pt NPO at this moment, aware of temp
--- NOTE | 2020-09-19 17:13 | PM.CCPN ---
Subjective Subjective Date of Service: 09/19/20 Interval History: 35-year-old female opiate dependence which is current presents with with back and abdominal pain with markedly elevated fever white count with left shift with clear-cut evidence of urinary tract infection and probable pyelonephritis CT scan negative for an obstructive issue no evidence of hydronephrosis but there was thickened gallbladder wall with small amount of pericholecystic fluid but HIDA scan showed normally functioning gallbladder so again this appears to be pyelonephritis and current lactate is normal at 1.5 and she had acute stage II renal failure also improving with with hydration and initially was dependent on Phil-Synephrine which has since been weaned off and simply with volume replacement blood pressure is 102/57 oxygen saturation 99% with heart rate 99 and pain is controlled utilizing combinations of Toradol 15 mg and Dilaudid 2 mg Physical Exam Vital Signs: Vital Signs: Last Vital Signs Temp 101.7 F H 09/19/20 15:35 Pulse 106 H 09/19/20 16:56 Resp 19 09/19/20 16:56 BP 102/57 L 09/19/20 16:56 Pulse Ox 97 09/19/20 16:56 Body Mass Index 30.9 Const: Other: Awake alert oriented and nonfocal neurologically Cardiac exam with normal S1 normal S2 no gallops no neck vein distension and good bilateral carotid upstrokes Chest is clear Abdomen is soft is no guarding No again a megaly skin is intact no wounds no livedo no acrocyanosis Objective Data Labs CBC & Chem 7: 09/19/20 05:30 09/19/20 05:30 Labs: Laboratory Results - last 24 hr 09/18/20 09/18/20 09/18/20 19:36 19:36 20:03 WBC 25.8 H RBC 4.51 Hgb 12.5 Hct 38.3 MCV 84.9 MCH 27.7 MCHC 32.6 RDW 12.3 Plt Count 239 MPV 11.3 Immature Gran % (Auto) 1.5 H Neut % (Auto) 85.2 H Lymph % (Auto) 3.9 L [place] % (Auto) 8.2 Eos % (Auto) 0.9 Baso % (Auto) 0.3 Lymph # (Auto) 1.0 L [place] # (Auto) 2.1 H Eos # (Auto) 0.2 Baso # (Auto) 0.1 Abs Immat Gran (auto) 0.39 H Absolute Neuts (auto) 22.0 H Absolute Nucleated RBC 0.000 Nucleated RBC % (auto) 0.0 Smear Tech's Comments VERIFIED Sodium Potassium Chloride Carbon Dioxide Anion Gap BUN Creatinine Estim Creat Clear Calc Estimated GFR Random Glucose Lactic Acid Calcium Phosphorus Magnesium Total Bilirubin Direct Bilirubin AST ALT Alkaline Phosphatase Total Protein Albumin Lipase Urine Color YELLOW Urine Appearance CLOUDY Urine pH 5.5 Ur Specific [place] 1.025 Urine Protein 2+ H Urine Glucose (UA) NEG Urine Ketones NEG Urine Blood 1+ H Urine Nitrite NEG Ur Leukocyte Esterase 2+ H Urine RBC 0-2 Urine WBC 30-49 H Ur Squamous Epith Cells 1+ Urine Bacteria 3+ Urine Opiates Screen POSITIVE H Ur Barbiturates Screen Not Detected Ur Phencyclidine Scrn Not Detected Ur Amphetamines Screen Not Detected U Benzodiazepines Scrn POSITIVE H Urine Cocaine Screen POSITIVE H U Marijuana (THC) Screen Not Detected Coronavirus (PCR) Influenza Type A (PCR) Influenza Type B (PCR) RSV RNA Qual (PCR) 09/18/20 09/18/20 09/18/20 20:03 20:03 20:03 WBC RBC Hgb Hct MCV MCH MCHC RDW Plt Count MPV Immature Gran % (Auto) Neut % (Auto) Lymph % (Auto) [place] % (Auto) Eos % (Auto) Baso % (Auto) Lymph # (Auto) [place] # (Auto) Eos # (Auto) Baso # (Auto) Abs Immat Gran (auto) Absolute Neuts (auto) Absolute Nucleated RBC Nucleated RBC % (auto) Smear Tech's Comments Sodium 134 L Potassium 3.6 Chloride 102 Carbon Dioxide 24 Anion Gap 12 BUN 13 Creatinine 1.11 Estim Creat Clear Calc 72.8 Estimated GFR 56 Random Glucose 122 H Lactic Acid 1.5 Calcium 8.4 Phosphorus Magnesium Total Bilirubin 0.5 Direct Bilirubin 0.3 AST 13 ALT 9 Alkaline Phosphatase 68 Total Protein 6.9 Albumin 3.8 Lipase 24 Urine Color Urine Appearance Urine pH Ur Specific [place] Urine Protein Urine Glucose (UA) Urine Ketones Urine Blood Urine Nitrite Ur Leukocyte Esterase Urine RBC Urine WBC Ur Squamous Epith Cells Urine Bacteria Urine Opiates Screen Ur Barbiturates Screen Ur Phencyclidine Scrn Ur Amphetamines Screen U Benzodiazepines Scrn Urine Cocaine Screen U Marijuana (THC) Screen Coronavirus (PCR) NEGATIVE Influenza Type A (PCR) NEGATIVE Influenza Type B (PCR) NEGATIVE RSV RNA Qual (PCR) NEGATIVE 09/19/20 09/19/20 05:30 05:30 WBC 34.1 H* RBC 4.27 Hgb 12.1 Hct 37.1 MCV 86.9 MCH 28.3 MCHC 32.6 RDW 12.6 Plt Count 242 MPV 11.9 Immature Gran % (Auto) 5.0 H Neut % (Auto) 81.5 H Lymph % (Auto) 5.7 L [place] % (Auto) 7.4 Eos % (Auto) 0.0 Baso % (Auto) 0.4 Lymph # (Auto) 1.9 [place] # (Auto) 2.5 H Eos # (Auto) 0.0 Baso # (Auto) 0.1 Abs Immat Gran (auto) 1.71 H Absolute Neuts (auto) 27.8 H Absolute Nucleated RBC 0.000 Nucleated RBC % (auto) 0.0 Smear Tech's Comments VERIFIED Sodium 137 Potassium 4.1 Chloride 107 Carbon Dioxide 20 L Anion Gap 14 BUN 14 Creatinine 0.95 Estim Creat Clear Calc 90.5 Estimated GFR > 60 Random Glucose 92 Lactic Acid Calcium 7.6 L D Phosphorus 2.6 L Magnesium 1.8 Total Bilirubin 0.6 Direct Bilirubin 0.4 AST 15 ALT 9 Alkaline Phosphatase 71 Total Protein 5.8 L Albumin 3.1 L Lipase Urine Color Urine Appearance Urine pH Ur Specific [place] Urine Protein Urine Glucose (UA) Urine Ketones Urine Blood Urine Nitrite Ur Leukocyte Esterase Urine RBC Urine WBC Ur Squamous Epith Cells Urine Bacteria Urine Opiates Screen Ur Barbiturates Screen Ur Phencyclidine Scrn Ur Amphetamines Screen U Benzodiazepines Scrn Urine Cocaine Screen U Marijuana (THC) Screen Coronavirus (PCR) Influenza Type A (PCR) Influenza Type B (PCR) RSV RNA Qual (PCR) Progress Note: A&P Assessment and plan (1) Hypotension: Status: Acute (2) Pyelonephritis: Status: Acute (3) Heroin abuse: Status: Acute Assessment and Plan: The plan therefore is to continue with ceftriaxone and metronidazole because on Levaquin she started immediately to develop a rash as it was infusing Time Spent With Patient Time: Total time spent is greater than 50% in coordination of care (as documented) at patient's floor/unit and/or counseling patient: Total time spent with greater than 50% in coordination of care (as documented) at patient's floor/unit and/or counseling patient:: 30
--- NOTE | 2020-09-19 19:33 | PM.EVENT ---
Event Note Date of Service: 09/19/20 Event Note: HIDA scan showed no evidence of gallbladder disease. Discussed with patient. On Tx for pyelonephritis
[2020-09-19] MEDS: Acetaminophen 325 MG TABLET 650 MG PO (20:10)
--- NOTE | 2020-09-19 23:47 | PC.NURSE ---
Assumed care at 7pm - Patient c/o continued pain in left flank, radiating to mid abd. Rufina PA aware - medicated w/ additional 0.5 mg IVP dilaudid & tylenol - patient fell asleep after, reported relief. Patient remains off of Phil - bp within parameters. Home meds clarified - Cymbalta changed to BID, discontinued clonazepam from med rec. Transferred up to [facility] at approx 2235 in bed to 254 with all belongings. 1 assist to bathroom once on IMC to bathroom. Report given to Corinne BLAKE. Patient educated about change of plan of care.
[2020-09-19] MEDS: Lactated Ringers 500 ML 1000 ML IVCONT (23:52)
[2020-09-19] MEDS: diazePAM 10 MG TABLET PO (23:54)
[2020-09-20] VITALS (13 sets, daily range): BP systolic 85–141; BP diastolic 49–91; PULSE 65–98; RESP 14–23; TEMP 36.4–37.1; O2SAT 97–100; BMI 31.0
[2020-09-20] MEDS: Lactated Ringers 500 ML IVCONT (02:18)
--- NOTE | 2020-09-20 02:56 | PC.NURSE ---
Pt BP noted to be low 84/47 . Hospitalist notified and ordered 1L LR bolus. Took BP after bolus, still low at 85/54. Hospitalist notified and ordered additional bolus 500mL of LR. BP 95/49 after second bolus. Patient assessed, asymptomatic, no complaints. Will continue to closely monitor vitals.
[2020-09-20] MEDS: HYDROmorphone HCl 2 MG/ML VIAL IVPUSH ×5 (05:20→20:29)
[2020-09-20] MEDS: Acetaminophen 325 MG TABLET 650 MG PO (05:23)
[2020-09-20] MEDS: Ketorolac Tromethamine 15 MG/ML VIAL IVPUSH ×3 (05:31→18:10)
[2020-09-20] MEDS: Lactated Ringers 1,000 ML 150 ML IVCONT ×2 (06:20→13:45)
[2020-09-20] MEDS: DULoxetine HCl 60 MG CAPSULE.DR PO ×2 (08:35→20:36)
[2020-09-20] MEDS: OXcarbazepine 300 MG TABLET 600 MG PO ×2 (08:35→20:36)
[2020-09-20] MEDS: cefTRIAXone sodium 2 GM in 0.9 % Sodium Chloride 50 ML IV (10:48)
--- NOTE | 2020-09-20 11:30 | MHC.RECOVRN ---
35 year old female presented to [facility] ED on 09/18 due to kidney pain and fever. Pt was admitted to ICU due to hypotension/sepsis. Pt transferred to [facility] this morning, 09/20.? T/w met with pt in 454 after pt had disclosed JESSICA to RN. Pt began using heroin at age 28 and crack cocaine at age 34. Pt states I've had more clean time than time when I was using. Pt reports pattern of 4 months in recovery, returning to use for 3 weeks, 4 months in recovery, etc. Pt states It's always because something happens and I have an emotional breakdown that I start using again. Pt currently using 1-2 bundles heroin, IV, x 1 month. Pt also reports crack cocaine, inh, x 1 year.? Pt has been in treatment multiple times including [address], residential programs, and receiving MOUD, Pt reports residential treatment and AA meetings are not helpful. Pt has found success with Vivitrol and is interested in restarting. Pt has own apartment. 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 ? Currently, pts goal for today is to have pain under control. Pt reports pain as 8/10 after current Dilaudid dose. Provider in room while t/w was interviewing pt and informed pt that pain medication would be addressed.? T/w will follow up with pt later today to further discuss MOUD and plan for recovery after d/c.?
--- NOTE | 2020-09-20 11:43 | MHC.CM.PN ---
per no dc date ast this time plan remains home no services
--- NOTE | 2020-09-20 15:56 | MHC.RECOVRN ---
T/w met with pt to f/u regarding MOUD, specifically naltrexone. Pt is not interested in methadone or Suboxone. Pt is currently utilizing Dilaudid to address pain r/t acute medical issues. It was discussed that last dose of any short acting opiate must be at least 3-5 days prior to beginning naltrexone. ATS level of care was discussed as a possibility after dc from [facility]. No decision has been made as to whether this will be pursued or not. Pt not interested in [facility] and [facility] will not be accepting patients due to change in owners. Pt stated I've also detoxed at home before, I could do that. Pt was given information about the [facility]. Pt agreeable to continue pain medication at this time and to continue discussion and planning around starting naltrexone. T/w will continue to follow for dc planning needs as well as f/u regarding MOUD. Case was also discussed with Theodora Duncan APRN.
--- NOTE | 2020-09-20 17:50 | HO.PM.IMPN ---
Subjective Subjective Date of Service: 10/29/20 Interval History: abd pain Review of Systems Patient still has has well as abdominal pain. denies any chest pain or shortness of breath or fever or chills Physical Exam Vital Signs: Vital Signs: Last Vital Signs Temp 98.7 F 09/20/20 15:13 Pulse 72 09/20/20 17:06 Resp 20 09/20/20 17:02 BP 133/78 09/20/20 17:06 Pulse Ox 99 09/20/20 15:13 Body Mass Index 31.0 physical exam: Cvs: [id number], [id number] , no murmur res: clear to auscultation ,no rhonchii or wheezing abd: no rebound or guarding ,still has abd pain, bs present. ext pulses present , no cyanosis neuro: axo3 , nonfocal. Objective Data Current Medications Generic Name Dose Route Start Last Admin Trade Name Freq PRN Reason Stop Dose Admin Acetaminophen 650 mg 09/19/20 15:45 09/20/20 05:23 Acetaminophen 325 Mg Tablet PO 650 mg Q6H PRN Administration Fever Diazepam 10 mg 09/19/20 23:26 09/19/20 23:54 Diazepam 10 Mg Tablet PO 10 mg BID PRN Administration Anxiety Duloxetine HCl 60 mg 09/19/20 21:00 09/20/20 08:35 Duloxetine Hcl 60 Mg Capsule. PO 60 mg BID SEBAS Administration Hydromorphone HCl 2 mg 09/20/20 12:54 09/20/20 17:02 Hydromorphone Hcl 2 Mg/Ml Vial IVPUSH 2 mg Q3H PRN Administration Pain, Severe (Pain Scale 7-10) Lactated Ringer's 1,000 mls @ 150 mls/hr 09/18/20 23:45 09/20/20 13:45 Lr IVCONT 150 mls/hr .Q6H40M SEBAS Administration Ceftriaxone Sodium 2 gm/ 50 mls @ 100 mls/hr 09/19/20 11:15 09/20/20 11:29 Sodium Chloride IV Infused Q24H SEBAS Infusion Metronidazole 1,000 mg in 200 mls @ 100 mls/hr 09/19/20 12:00 09/20/20 13:51 Flagyl IV Infused Q12H SEBAS Infusion Ketorolac Tromethamine 15 mg 09/19/20 07:09 09/20/20 11:43 Ketorolac Tromethamine 15 Mg/Ml Vial IVPUSH 15 mg Q6H PRN Administration Pain, Severe (Pain Scale 7-10) Oxcarbazepine 600 mg 09/19/20 01:15 09/20/20 08:35 Oxcarbazepine 300 Mg Tablet PO 600 mg BID SEBAS Administration Quetiapine Fumarate 150 mg 09/19/20 23:30 09/20/20 06:17 Quetiapine Fumarate 50 Mg Tablet PO Not Given BEDTIME SEBAS Labs CBC & Chem 7: 09/19/20 05:30 09/19/20 05:30 Microbiology Microbiology Results: Microbiology 09/18/20 20:04 Blood - Venous Blood Culture - Preliminary No growth after 24 hours. 09/18/20 20:03 Blood - Venous Blood Culture - Preliminary No growth after 24 hours. Assessment and Plan (1) Abnormal findings on diagnostic imaging of abdomen: Status: Acute (2) Hypotension: Status: Acute (3) Pyelonephritis: Status: Acute Assessment and Plan: 1. Patient initially admitted to ICU: probable sepsis/ hypotension- probably related to UTI. Patient is currently on IV ceftriaxone and metronidazole -? suspicion of gallbladder related infection also initially- but seen by surgery:HIDA scan showed no evidence of gallbladder disease. patient continued to have abdominal pain but says that better than yesterday but still required pain medication added bowel regimen has leukocytosis, no fever now will monitor CBC and BMP in the morning.
[2020-09-20] MEDS: Docusate Sodium 100 MG CAPSULE PO (20:36)
[2020-09-20] MEDS: diazePAM 10 MG TABLET PO (20:37)
[2020-09-20] MEDS: QUEtiapine Fumarate 50 MG TABLET 150 MG PO (20:37)
[2020-09-20] MEDS: oxyCODONE HCl Immed Release 5 MG TABLET PO (21:22)
[2020-09-22 06:52] LABS: Codeine, Ur 93 ng/mL (<50); Hydrocodone, Ur NEGATIVE ng/mL (<50); Hydromorphone, Ur NEGATIVE ng/mL (<50); Morphine, Ur 9081 ng/mL (<50); Norhydrocodone, Ur NEGATIVE ng/mL (<50); Noroxycodone, Ur NEGATIVE ng/mL (<50); Oxycodone, Ur NEGATIVE ng/mL (<50); Oxymorphone, Ur NEGATIVE ng/mL (<50)
--- NOTE | 2021-05-27 12:31 | P.DS_ITS ---
DS: Providers Provider Date of Service: 09/21/20 Date of discharge: 09/21/20 Primary care physician: Meng Velasquez MD DS: Diagnosis Discharge Diagnosis (1) Sepsis: Status: Acute (2) UTI (urinary tract infection): Status: Acute (3) Left against medical advice: Status: Acute DS: Summary Hospital Course Hospital Course: Patient initially admitted to ICU:? probable sepsis/ hypotension- probably related to UTI. ? Patient was being treated with IV antibiotics, patient subsequently eloped on 09/21/20 (please see nursing discharge Assessment for further information ) Time Spent with Patient Time attestation: Total time spent providing and/or coordinating discharge services: Discharge coordination time: Less than 30 minutes Quality: Stroke Does the patient have a stroke diagnosis?: No Physical Exam Verdana 4l Vital Signs: Verdana 4d Verdana 4d Vital Signs: Verdana 4d Verdana 4Bd Last Vital Signs Verdana 4d Cnc Cutting Operator New 4d Cnc Cutting Operator New 4d Temp 98.1 F 12/12/20 09:02 Cnc Cutting Operator New 4d Pulse 97 12/12/20 09:02 Cnc Cutting Operator New 4d Resp 16 12/12/20 09:02 BP 140/72 H 12/12/20 09:02 Pulse Ox 99 12/12/20 09:02 BMI result Body Mass Index 29.0 patient eloped . DS: Data Data Completed and Pending Labs on day of discharge: CBC & Chem 7: 09/19/20 05:30? 09/19/20 05:30? Microbiology Microbiology Results: Microbiology 09/18/20 20:04 ? Blood - Venous ? Blood Culture - Preliminary ? No growth after 24 hours. 09/18/20 20:03 ? Blood - Venous ? Blood Culture - Preliminary ? No growth after 24 hours Discharge Plan Discharge Patient Disposition: Left Against Medical Advice Discharge Diagnosis: sepsis /uti Referrals: Kwame Berumen MD [Primary Care Provider] - Discharge Medications: No Action oxcarbazepine 600 mg tablet 1 tab PO BID 0RF Flovent HFA 220 mcg/actuation HFA aerosol inhaler 2 puff inhalation BID 0RF diazepam 10 mg tablet 1 tab PO BID PRN (Reason: Anxiety) 0RF aripiprazole 15 mg tablet 1 tab PO DAILY 0RF duloxetine 60 mg capsule,delayed release(DR/EC) 2 cap PO DAILY 0RF quetiapine 50 mg tablet 150 mg PO BEDTIME 0RF Vyvanse 70 mg capsule 1 cap PO QAM 0RF minocycline 100 mg capsule 100 mg PO BID Qty: 20 0RF tobramycin 0.3 % drops 1 drp ophthalmic-Left Q4H Qty: 5 0RF ketorolac [Acular] 0.5 % drops 1 drp ophthalmic (eye) QID Qty: 5 0RF Rx Instructions: left eye cyclobenzaprine 5 mg tablet 5 mg PO TID Qty: 9 0RF ibuprofen 800 mg tablet 800 mg PO Q8H 10 Days Qty: 30 0RF Discharge Orders: Discharge Order (Routine); Ordered 07/16/21 Ordered By: Luep Thorne Care Plan Goals: patient eloped Health Concerns: patient eloped. Plan of Treatment: patient eloped Assessment: patient eloped Discharge Date/Time: 09/20/20 21:45
== END 2020-09-20 21:45 | disposition left against medical advice (07) | DRG 720 ==
LOC: HO.ED 21:06 → HO.ICU 23:52 → HO.IMC 09-19 21:00
PROVIDERS: Physician Assistant; Surgery; Admitting Provider Internal Medicine Cardiovascular Disease; Emergency Provider Emergency Medicine; PCP Internal Medicine; Visit Provider Internal Medicine Cardiovascular Disease
DX: A41.9 Sepsis, unspecified organism (principal); I95.9 Hypotension, unspecified; F11.20 Opioid dependence, uncomplicated; N12 Tubulo-interstitial nephritis, not specified as acute or chronic; Z20.822 Contact with and (suspected) exposure to COVID-19; Z88.2 Allergy status to sulfonamides; Z79.52 Long term (current) use of systemic steroids; Z79.899 Other long term (current) drug therapy
CPT/HCPCS: 0241U; 36415; 71045; 74176; 78226; 80048; 80076; 80307; 80364; 80365; 81001; 83605; 83690; 83735; 84100; 85025; 87040; 96365; 99285; A9537; J0696; J1170; J1885; J1956; J2370

== ENCOUNTER 2020-12-12 08:43 | Emergency (ER) | payer OTHER, SELFPAY ==
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
[2020-12-12 09:02] VITALS: BP 140/72; PULSE 97; RESP 16; TEMP 36.7; O2SAT 99; BMI 29.0
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
--- NOTE | 2021-05-27 12:31 | P.DS_ITS ---
DS: Providers Provider Date of Service: 09/21/20 Date of discharge: 09/21/20 Primary care physician: Meng Velasquez MD DS: Diagnosis Discharge Diagnosis (1) Sepsis: Status: Acute (2) UTI (urinary tract infection): Status: Acute (3) Left against medical advice: Status: Acute DS: Summary Hospital Course Hospital Course: This discharge summary is for admission Date of Service is 09/21/2020 Patient was admitted to the ICU for Sepsis with hypotension secondary to UTI. She required neosynephrine in the ICU. She was treated with IV anbitiotics and fluids in addition to this. She was transferred out of the ICU once she stabliized. 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 Time Spent with Patient Time attestation: Total time spent providing and/or coordinating discharge services: Discharge coordination time: Less than 30 minutes Quality: Stroke Does the patient have a stroke diagnosis?: No Physical Exam Vital Signs: Vital Signs: Last Vital Signs Temp 98.1 F 12/12/20 09:02 Pulse 97 12/12/20 09:02 Resp 16 12/12/20 09:02 BP 140/72 H 12/12/20 09:02 Pulse Ox 99 12/12/20 09:02 BMI result Body Mass Index 29.0 patient eloped . DS: Data Data Completed and Pending Labs on day of discharge: CBC & Chem 7: 09/19/20 05:30? 09/19/20 05:30? Microbiology Microbiology Results: Microbiology 09/18/20 20:04 ? Blood - Venous ? Blood Culture - Preliminary ? No growth after 24 hours. 09/18/20 20:03 ? Blood - Venous ? Blood Culture - Preliminary ? No growth after 24 hours Discharge Plan Discharge Clinical Impression: Contusion Patient Disposition: Home, Self-Care Instructions: Muscle Strain (ED) Additional Instructions: take antibiotics as directed [id number] Motrin for pain Prescriptions: New minocycline 100 mg capsule 100 mg PO BID Qty: 20 RF: 0 No Action oxcarbazepine 600 mg tablet 1 tab PO BID RF: 0 Flovent HFA 220 mcg/actuation HFA aerosol inhaler 2 puff inhalation BID RF: 0 diazepam 10 mg tablet 1 tab PO BID PRN (Reason: Anxiety) RF: 0 aripiprazole 15 mg tablet 1 tab PO DAILY RF: 0 duloxetine 60 mg capsule,delayed release(DR/EC) 2 cap PO DAILY RF: 0 quetiapine 50 mg tablet 150 mg PO BEDTIME RF: 0 Vyvanse 70 mg capsule 1 cap PO QAM RF: 0 tobramycin 0.3 % drops 1 drp ophthalmic-Left Q4H Qty: 5 RF: 0 ketorolac [Acular] 0.5 % drops 1 drp ophthalmic (eye) QID Qty: 5 RF: 0 cyclobenzaprine 5 mg tablet 5 mg PO TID Qty: 9 RF: 0 ibuprofen 800 mg tablet 800 mg PO Q8H 10 Days Qty: 30 RF: 0 Interventions: ED Discharge Assessment Last Done: 12/12/20 10:57 Discharge Date/Time: 12/12/20 11:09
== END 2020-12-12 11:09 | disposition home or self-care (01) ==
PROVIDERS: Emergency Provider Emergency Medicine Emergency Medical Services; PCP Physical Medicine & Rehabilitation
DX: T14.8XXA Other injury of unspecified body region, initial encounter (principal); L03.221 Cellulitis of neck; V43.52XA Car driver injured in collision with other type car in traffic accident, initial encounter; Y93.9 Activity, unspecified; Y92.410 Unspecified street and highway as the place of occurrence of the external cause; Y99.9 Unspecified external cause status
CPT/HCPCS: 73000; 99283; 99284

== ENCOUNTER 2021-03-02 20:22 | Emergency (ER) | payer OTHER, SELFPAY ==
[2021-03-02 20:25] VITALS: BP 120/84; PULSE 105; RESP 16; TEMP 36.1; O2SAT 98; BMI 28.2
[2021-03-02] MEDS: Tetracaine HCl/PF 0.5% Oph Sol 4 ML DROPS 3 DROP EYE-LEFT (21:51)
[2021-03-02] MEDS: Tobramycin Sulfate 0.3% Sol Op 5 ML BTL 2 DROP EYE-LEFT (21:54)
[2021-03-02] MEDS: Fluorescein Sodium STRIP 1 STRIP EYE-LEFT (21:57)
--- NOTE | 2021-03-02 22:04 | ED.EYEPROB ---
HPI - Eye Problem General Chief complaint: Eye Problems Stated complaint: eye problems Time Seen by Provider: 03/02/21 21:32 Source: patient Mode of arrival: ambulatory Limitations: no limitations History of Present Illness HPI Narrative: Patient woke up with retention left eye redness and watering full sensitivity no known trauma no headache has slightly blurred vision Related Data Home Medications Medication Instructions Recorded Confirmed aripiprazole 15 mg tablet 1 tab PO DAILY 09/18/20 09/18/20 diazepam 10 mg tablet 1 tab PO BID PRN 09/18/20 09/18/20 duloxetine 60 mg capsule,delayed 2 cap PO DAILY 09/18/20 09/18/20 release fluticasone propionate 220 2 puff INHALATION BID 09/18/20 09/18/20 mcg/actuation HFA aerosol inhaler (Flovent HFA) lisdexamfetamine 70 mg capsule 1 cap PO QAM 09/18/20 09/18/20 (Vyvanse) oxcarbazepine 600 mg tablet 1 tab PO BID 09/18/20 09/18/20 quetiapine 50 mg tablet 150 mg PO BEDTIME 09/18/20 09/19/20 Previous Rx's Medication Instructions Recorded minocycline 100 mg capsule 100 mg PO BID #20 cap 12/12/20 ketorolac 0.5 % eye drops (Acular) 1 drp OPHTHALMIC (EYE) QID #5 ml 03/02/21 tobramycin 0.3 % eye drops 1 drp OPHTHALMIC-LEFT Q4H #5 ml 03/02/21 Allergies Allergy/AdvReac Type Severity Reaction Status Date / Time buprenorphine [From SUBOXONE] Allergy Intermediate ANXIETY Verified 09/18/20 19:21 levofloxacin [From Levaquin] Allergy Intermediate Hives Verified 09/19/20 11:14 naloxone [From SUBOXONE] Allergy Intermediate ANXIETY Verified 09/18/20 19:21 cefaclor [From CECLOR] Allergy Unknown UNKNOWN Verified 09/18/20 19:21 sulfamethoxazole Allergy Unknown UNKNOWN Verified 09/18/20 19:21 [From BACTRIM] trimethoprim [From BACTRIM] Allergy Unknown UNKNOWN Verified 09/18/20 19:21 Review of Systems Review of Systems: Yes all other systems are reviewed and are negative PMFSH Past Medical History Medical History Anxiety Bipolar 1 disorder Substance abuse Social History Social History Alcohol intake: current Alcohol intake frequency: a few times a week Patient Tobacco Use Status: Current everyday Tobacco user Substance Use Type: IV Drugs Advance Directives: No service: No Current occupational status: unemployed Physical Exam Vital Signs: Vital Signs: Last Vital Signs Temp 97 F 03/02/21 20:25 Pulse 105 H 03/02/21 20:25 Resp 16 03/02/21 20:25 BP 120/84 03/02/21 20:25 Pulse Ox 98 03/02/21 20:25 Body Mass Index 28.2 Const: General: no acute distress and well developed Eyes: Visual Smith: normal visual smith by confrontation Alignment and Position: alignment normal Eyelids: Yes eyelids normal Conjunctivae: conjunctival abnormal left conjunctival injection Sclerae: sclerae normal Corneas: corneas abnormal on the left and fluorescein used (Abrasion seen in left cornea from 4:00 to 6:00 position peripherally) Pupils: Equal, round and reactive pupils present EOM: EOMs intact bilaterally Direct Ophthalmoscopy: fundi normal bilaterally and anterior chamber normal Eyes/upper lids images: 1. Corneal abrasion at left inferolateral quadrant no foreign body seen Neuro: Cranial nerves: Yes Equal, round and reactive pupils present Discharge Plan Discharge Clinical Impression: Corneal abrasion Qualifiers: Encounter type: initial encounter Laterality: left Qualified Code(s): S05.02XA - Injury of conjunctiva and corneal abrasion without foreign body, left eye, initial encounter Patient Disposition: Home, Self-Care Instructions: Corneal Abrasion (ED) Additional Instructions: Local care as advised Use eye drops as prescribed Prescriptions: New tobramycin 0.3 % drops 1 drp ophthalmic-Left Q4H Qty: 5 RF: 0 ketorolac [Acular] 0.5 % drops 1 drp ophthalmic (eye) QID Qty: 5 RF: 0 No Action oxcarbazepine 600 mg tablet 1 tab PO BID RF: 0 Flovent HFA 220 mcg/actuation HFA aerosol inhaler 2 puff inhalation BID RF: 0 diazepam 10 mg tablet 1 tab PO BID PRN (Reason: Anxiety) RF: 0 aripiprazole 15 mg tablet 1 tab PO DAILY RF: 0 duloxetine 60 mg capsule,delayed release(DR/EC) 2 cap PO DAILY RF: 0 quetiapine 50 mg tablet 150 mg PO BEDTIME RF: 0 Vyvanse 70 mg capsule 1 cap PO QAM RF: 0 minocycline 100 mg capsule 100 mg PO BID Qty: 20 RF: 0
== END 2021-03-02 22:10 | disposition home or self-care (01) ==
PROVIDERS: Emergency Provider Internal Medicine; PCP Internal Medicine
DX: S05.02XA Injury of conjunctiva and corneal abrasion without foreign body, left eye, initial encounter (principal); F17.200 Nicotine dependence, unspecified, uncomplicated; X58.XXXA Exposure to other specified factors, initial encounter; Y93.9 Activity, unspecified; Y92.9 Unspecified place or not applicable; Y99.9 Unspecified external cause status; Z79.899 Other long term (current) drug therapy; Z71.6 Tobacco abuse counseling
CPT/HCPCS: 99283; 99284

== ENCOUNTER 2021-05-11 15:19 | Emergency (ER) | payer OTHER, SELFPAY ==
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
[2021-05-11] MEDS: Acetaminophen 325 MG TABLET 975 MG PO (18:18)
[2021-05-11] MEDS: LORazepam 1 MG TABLET PO (18:18)
[2021-05-11 18:58] VITALS: PULSE 88; RESP 20; O2SAT 98; BMI 35.5
[2021-05-11 19:45] VITALS: BP 114/67; PULSE 88; RESP 16; O2SAT 98
== END 2021-05-11 20:12 | disposition home or self-care (01) ==
PROVIDERS: Emergency Provider Emergency Medicine; PCP Internal Medicine
DX: S13.4XXA Sprain of ligaments of cervical spine, initial encounter (principal); V43.52XA Car driver injured in collision with other type car in traffic accident, initial encounter; M79.641 Pain in right hand; F41.9 Anxiety disorder, unspecified; Y93.89 Activity, other specified; Y92.414 Local residential or business street as the place of occurrence of the external cause; Y99.9 Unspecified external cause status; R93.0 Abnormal findings on diagnostic imaging of skull and head, not elsewhere classified; E07.89 Other specified disorders of thyroid
CPT/HCPCS: 70450; 72125; 73110; 73130; 99284

== ENCOUNTER 2022-09-01 14:44 | Emergency (ER) | payer OTHER, SELFPAY ==
[2022-09-01 14:52] VITALS: BP 128/79; PULSE 94; O2SAT 99
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
[2022-09-01 15:02] VITALS: BMI 25.0
--- NOTE | 2022-09-01 15:08 | PC.NURSE ---
Patient's friend, who was also a patient, came to patient's bedside and was refusing to go back to their own bed. When asked to go back to her bed patient and her friend became agitated and stated that they wanted to leave. Dr Dodd spoke with patient an informed her of the dangers of leaving against medical advise, patient decided that she still wanted to leave and took her C-collar off. Patient signed AMA paperwork and ambulated out of department independently accompanied by friend
== END 2022-09-01 15:18 | disposition left against medical advice (07) ==
PROVIDERS: Emergency Provider Emergency Medicine
DX: F11.19 Opioid abuse with unspecified opioid-induced disorder (principal); L03.113 Cellulitis of right upper limb
CPT/HCPCS: 99281

== ENCOUNTER 2023-04-07 | Outpatient (REF) | payer OTHER, SELFPAY ==
[2023-04-08 15:03] LABS: Amphetamine Screen Urine Not Detected (Not Detect); Barbiturates, Urine Not Detected (Not Detect); Benzodiazepines Screen Urine POSITIVE (Not Detect); Cannabinoid Screen Urine POSITIVE (Not Detect); Cocaine Screen Urine POSITIVE (Not Detect); Fentanyl, urine POSITIVE (Not Detect); Opiate Screen Urine POSITIVE (Not Detect); Phencyclidine Screen Urine Not Detected (Not Detect)
== END 2023-04-07 00:01 | disposition home or self-care (01) ==
LOC: HO.LNP
PROVIDERS: Visit Provider Psychiatry & Neurology Psychiatry
DX: F14.10 Cocaine abuse, uncomplicated (principal); F11.20 Opioid dependence, uncomplicated
CPT/HCPCS: 80307

== ENCOUNTER → 2023-04-09 09:45 | Outpatient (BNV) | payer OTHER, SELFPAY | PROVIDERS: Visit Provider Psychiatry & Neurology Psychiatry | DX: F19.20 Other psychoactive substance dependence, uncomplicated (principal); F39 Unspecified mood [affective] disorder; F41.9 Anxiety disorder, unspecified; F32.A Depression, unspecified; F43.10 Post-traumatic stress disorder, unspecified | CPT/HCPCS: 90792; 99213; 99214 ==

== ENCOUNTER 2023-04-12 15:19 | Outpatient (REF) | payer OTHER, SELFPAY ==
[2023-04-12 15:55] LABS: MANUAL DIFF FLAG NO
[2023-04-12 16:08] LABS: Basophils Absolute Auto 0.1 X10*3/uL (0.0-0.2); Eosinophils Absolute Auto 0.1 X10*3/uL (0.0-0.4); Eosinophils Percent Auto 0.6 % (0-4); Hematocrit 39.2 % (37.0-47.0); Hemoglobin 12.4 g/dl (12.0-16.0); Imm Gran Abs Auto 0.04 X10*3/uL (0.00-0.03); Imm Gran Pct Auto 0.5 % (0.0-0.4); Lymphocytes Absolute Auto 1.6 X10*3/uL (1.2-4.9); Lymphocytes Percent Auto 19.7 % (20-40); Mean Corpuscular HGB Conc 31.6 g/dl (31.0-35.0); Mean Corpuscular Hemoglobin 26.7 pg (27.0-33.0); Mean Corpuscular Volume 84.3 fL (80.0-98.0); Mean Platelet Volume 10.5 fL (9.4-12.3); Monocytes Absolute Auto 0.5 X10*3/uL (0.1-1.2); Monocytes Percent Auto 6.2 % (2-11); Neutrophils Absolute Auto 5.7 x10*3/uL (2.0-8.3); Platelet Count 337 X10*3/uL (160-400); Red Blood Count 4.65 X10*6/uL (4.20-5.50); Red Cell Distribution Width 13.8 % (11.0-16.0)
[2023-04-12 16:30] LABS: Alanine Aminotransferase 23 U/L (0-31); Alkaline Phosphatase 64 U/L (39-117); Anion Gap 13 (12-20); Aspartate Amino Transferase 23 U/L (5-31); Bilirubin Direct 0.2 mg/dL (0.0-0.5); Bilirubin Total 0.4 mg/dL (0.0-1.0); Blood Urea Nitrogen 9 mg/dL (9-16); Calcium 9.4 mg/dL (8.4-10.2); Carbon Dioxide 25 mmol/L (22-29); Chloride 106 mmol/L (96-108); Estimated Glomerular Filt Rate > 60; Glucose Fasting 89 mg/dL (60-99); Glucose Random 89 mg/dL (60-115); Potassium 3.7 mmol/L (3.3-5.1); Sodium 140 mmol/L (135-145); Total Protein 8.2 g/dL (6.5-8.0)
[2023-04-13 08:18] LABS: HBS Num1 156.97 mIU/mL (0-7.99); HBc Num1 0.24 S/CO (0.00-0.79); HIV AB/AG Nonreactive (Nonreactive); HIV Num 1 0.05 S/CO (0.00-0.99); Hepatitis B Core Antibody Nonreactive (Nonreactive); Hepatitis B Surface Antigen Negative (Negative); ~HepC Num1 12.57 S/CO (0.00-0.79); ~Hepatitis B Surface Antibody REACTIVE (Nonreactive); ~Hepatitis C Antibody Reactive (Nonreactive)
[2023-04-13 08:20] LABS: Syphilis Screen Nonreactive (Nonreactive)
[2023-04-13 15:48] LABS: HCV Log PCR 4.36 Log IU/mL (NOT DETECTED); HepC Viral Load 23000 IU/mL (NOT DETECTED)
== END 2023-04-12 15:20 | disposition home or self-care (01) ==
LOC: HO.LAB 15:19
PROVIDERS: Visit Provider Psychiatry & Neurology Psychiatry
DX: F19.20 Other psychoactive substance dependence, uncomplicated (principal); F39 Unspecified mood [affective] disorder
CPT/HCPCS: 80048; 80053; 80076; 82248; 85025; 86704; 86706; 86780; 86803; 87340; 87389; 87522

== ENCOUNTER 2023-04-15 10:45 | Outpatient (RCR) | payer OTHER, SELFPAY ==
[2023-04-07 13:17] VITALS: BP 100/62; PULSE 80; TEMP 36.7
[2023-04-07 13:26] VITALS: BMI 28.4
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
--- NOTE | 2023-04-08 18:18 | HO.PHP ---
Clients case was reviewed and opened today in treatment team.
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
--- NOTE | 2023-04-09 15:11 | P.PNPSP_ITS ---
Subjective Subjective Date of Service: 04/09/23 Reason For Visit: depression,JESSICA Interim History: Patient seen for follow-up. UDS positive x4 including for opiates, cocaine, cannabinoids, BZD (which is Rxed). Patient aware, insists no further cocaine, heroin or other opioid use since last week. Grooming better today. Also less expansive or superficial today. Reports struggling with moodiness. Marion good this AM but now mood irritable, describes struggles with mood stability, says not so much with depressed mood (as in the past) but moreso mood swings and irritability, anger. She feels the mood is the biggest issue which she thinks may have been driving a lot of the impulsive substance use. Feels the mood swings often precedes binges. Also considerable poor frustration tolerance desribed. She is experiencing GI upset, cramping, loose and irregular stools which she attributes coming off of drugs and methadone. Shares feeling conflicted about recent break-up - hopeful, positive, energized since being liberated from the toxic dysfunciton, but also shares feelings of immense guilt over dissolution of the relationship. Aside from prazosin which was added a year ago, other medications remain over past 7+ years. Duloxetine likely the earliest, mood stabilizers Abilify, Tril eptal added later for mood stabliization and emerging can. Seroquel primarily for sleep. Mental Status Exam Mental Status Exam Narrative: Alert. Oriented. In no acute distress. Casual. Grooming improved. Cooperative, friendly overfamiliar attitude but not disinhibited. Eye intact maintained. M ood mcclain, at times angry or anxious. Affect bright, reactive without tearfulness, irritablity or lability noted. Speech normal, not pressured or latent. Thought process coherent, linear, scattered but no evidence of disorganized processing. Thought content relevant to stressors, no SI, HI. No psychosis. Distractible but can attend well to conversation. Cognition grossly intact. Sensorium clear. Judgment and insight fair by adequate. Diagnostics Vital Signs (24Hr): BMI result Body Mass Index 28.4 Assessment & Plan Assessment & Plan (1) Polysubstance (including opioids) dependence with physiol dependence: Status: Acute Code(s): F19.20 - Other psychoactive substance dependence, uncomplicated (2) Mood disorder: Status: Acute Code(s): F39 - Unspecified mood [affective] disorder (3) Anxiety and depression: Status: Acute Code(s): F41.9 - Anxiety disorder, unspecified; F32.A - Depression, unspecified Plan Substance use has been chronic and pervasive so is difficult to characterize whether there is an underling bipolar affective disorder vs being solely substance induced. Vague history shared today suggests perhaps the antidepressant may have been increased in the past for depressive sypmtoms, may have subsequently caused some over-activation and perhaps lead to further titration or addition of subsequent mood stabilizers. In light of patient report that she has not really been contending with severe depressive periods as she had in the past, so much as now she tends toward more irritability and can, we may consider lowering the antidepressant to make sure this not contributing to further destabilization of mood, before we proceed to optimize mood stabilization trtmt. First we will focus on sleep, and GI complaints. We discussed med changes, also anticipate lowering duloxetine to 30-40 mg/d next week. She has also been off the Vyvanse, but says her refill is ready to vegetable picker today. So we will see how she looks lext week back on [facility] Vyvanse (spec in terms of impulsivity, otherwise we may possibly go up on Trlieptal for irritability, impulsivity and mood swings start dicyclomine 10-20 mg BID prn GI sx bump up quetiapine to 150 mg/day. Take 50 mg in evening and continue 100 mg qHS continue other medications. Reassess next week. Patient educated on: diagnosis and medication risk/benefits Informed Consent: understands Certification I certify that partial hospital treatment is medically necessary due to the symptoms and problems resulting from the patient's mental illness and the fa ilure to treat the patient at the partial hospital level of care would likely result in the patient requiring inpatient psychiatric care which could not be prevented at a less intensive level of care. Total time managing care of this patient today ____ minutes. Discharge Plan Discharge Attending provider: Buck Maldonado Medications: New dicyclomine 20 mg tablet 10 - 20 mg PO BID PRN (Reason: abdominal pain) Qty: 20 0RF No Action oxcarbazepine 600 mg tablet 1 tab PO DAILY diazepam 10 mg tablet 1 tab PO BID PRN (Reason: Anxiety) prazosin 2 mg capsule 2 mg PO TID quetiapine 100 mg tablet 100 mg PO BEDTIME Patient Comments: Patient stated she takes at HS. aripiprazole 20 mg tablet 20 mg PO DAILY duloxetine 60 mg capsule,delayed release(DR/EC) 60 mg PO DAILY lisdexamfetamine 60 mg Capsule 60 mg PO DAILY Rx Instructions: Last filled October 05, 2022. Pharmacy not able to get in stock.
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
[2023-04-12 14:16] LABS: Amphetamine Screen Urine POSITIVE (Not Detect); Barbiturates, Urine Not Detected (Not Detect); Benzodiazepines Screen Urine POSITIVE (Not Detect); Cannabinoid Screen Urine POSITIVE (Not Detect); Cocaine Screen Urine POSITIVE (Not Detect); Fentanyl, urine POSITIVE (Not Detect); Opiate Screen Urine POSITIVE (Not Detect); Phencyclidine Screen Urine Not Detected (Not Detect)
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
--- NOTE | 2023-04-15 11:14 | PC.NURSE ---
Maria Ines stated she is starting [facility] tomorrow 04/16/23 at 0900 thus is discharging from [facility] today. [facility] staff is aware.
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
[2023-04-18 14:33] LABS: EDDP (Methadone Metabolite) >15000; Methadone, Urine MS 2600 ng/mL
[2023-04-19 12:15] LABS: Codeine, Ur NEGATIVE; Hydrocodone, Ur NEGATIVE; Morphine, Ur 342 (H)
[2023-04-19 12:16] LABS: Hydromorphone, Ur NEGATIVE; Norhydrocodone, Ur NEGATIVE; Noroxycodone, Ur NEGATIVE; Oxycodone, Ur NEGATIVE; Oxymorphone, Ur NEGATIVE
[2023-04-19 12:17] LABS: Opiates GC/MS Note SEE NOTES
== END 2023-04-15 23:59 | disposition home or self-care (01) ==
LOC: HO.PHPA 10:45
PROVIDERS: Psychiatry & Neurology Psychiatry; Visit Provider Psychiatry & Neurology Psychiatry
DX: F41.9 Anxiety disorder, unspecified (principal); F32.A Depression, unspecified; F19.20 Other psychoactive substance dependence, uncomplicated; F39 Unspecified mood [affective] disorder; F43.10 Post-traumatic stress disorder, unspecified; Z79.899 Other long term (current) drug therapy
CPT/HCPCS: 80307; 80358; 80365; 90791; 90853; G0480

== ENCOUNTER 2023-09-20 10:28 | Emergency (ER) | payer OTHER, SELFPAY ==
[2023-09-20 10:31] VITALS: BP 134/92; PULSE 134; O2SAT 80
--- NOTE | 2023-09-20 10:37 | ED_ITS ---
HPI - Overdose General Chief Complaint: ETOH/Substance Use Stated Complaint: OD Time Seen by Provider: 09/20/23 10:30 Source: patient and EMS Mode of arrival: EMS Limitations: no limitations History of Present Illness HPI Narrative: According to EMS patients friends called because they were concerned about her breathing. patient denies suicidal or homicidal ideation MD complaint: accidental overdose Onset (ago): minute(s) Related Data Home Medications ?Medication ?Instructions ?Recorded ?Confirmed diazepam 10 mg tablet 1 tab PO BID PRN Anxiety 09/18/20 04/07/23 oxcarbazepine 600 mg tablet 1 tab PO DAILY 09/18/20 04/07/23 aripiprazole 20 mg tablet 20 mg PO DAILY 04/07/23 04/07/23 duloxetine 60 mg capsule,delayed 60 mg PO DAILY 04/07/23 04/07/23 release prazosin 2 mg capsule 2 mg PO TID 04/07/23 04/07/23 lisdexamfetamine 60 mg capsule 60 mg PO DAILY 04/08/23 04/08/23 gabapentin 300 mg capsule 300 mg PO BEDTIME 04/15/23 04/15/23 meloxicam 15 mg tablet 15 mg PO DAILY 04/15/23 04/15/23 Previous Rx's ?Medication ?Instructions ?Recorded dicyclomine 20 mg tablet 10 - 20 mg (0.5 - 1 x 20 mg) PO 04/09/23 BID PRN abdominal pain #20 tabs quetiapine 100 mg tablet 100 mg PO BEDTIME 14 days #14 tabs 04/15/23 quetiapine 50 mg tablet See Rx Instructions .Route 04/15/23 .COMPLEX 14 days #28 tabs Allergies Allergy/AdvReac Type Severity Reaction Status Date / Time buprenorphine [From SUBOXONE] Allergy Intermediate ANXIETY Verified 09/20/23 10:46 levofloxacin [From Levaquin] Allergy Intermediate Hives Verified 09/20/23 10:46 naloxone [From SUBOXONE] Allergy Intermediate ANXIETY Verified 09/20/23 10:46 cefaclor [From CECLOR] Allergy Unknown UNKNOWN Verified 09/20/23 10:46 sulfamethoxazole Allergy Unknown UNKNOWN Verified 09/20/23 10:46 [From BACTRIM] trimethoprim [From BACTRIM] Allergy Unknown UNKNOWN Verified 09/20/23 10:46 terbinafine [From Lamisil] AdvReac Unknown Fatigued Verified 09/20/23 10:46 Review of Systems Review of Systems: Yes all other systems are reviewed and are negative Neurologic: Denies Sensory deficit (Neuro) [facility] Past Medical History Medical History Attention and concentration deficit Post concussion syndrome Photophobia History of hepatitis C Thoracic disc herniation Herniated cervical disc Asthma Anxiety Bipolar 1 disorder Substance abuse Social History Social History Household Members: None Alcohol intake: current Alcohol intake frequency: a few times a week Comment: Pt refusing bed alarm Patient Tobacco Use Status: Never used Tobacco Substance Use Type: IV Drugs Advance Directives: No Advance Directives Information Provided: No service: No Current occupational status: unemployed Physical Exam Vital Signs: Vital Signs: Last Vital Signs Temp 99.1 F 09/20/23 10:45 Pulse 105 H 09/20/23 10:45 Resp 16 09/20/23 10:45 BP 137/90 H 09/20/23 10:45 Pulse Ox 96 09/20/23 10:45 O2 Del Method Nasal Cannula 09/20/23 10:45 Oxygen Flow Rate 2 09/20/23 10:45 BMI result Body Mass Index 23.3 Const: Other: female nodding off, looking older than stated age Nutritional Appearance: average body habitus Orientation/consciousness: oriented to person and patient oriented x3 Limitations: no limitations HEENT: Head: Yes normal to inspection Ears: external ears normal General nose exam: Normal external nose present Mouth: Normal oral and palatal mucosa present and oropharynx normal Throat: Yes posterior oropharynx normal Eyes: Other: pinpoint pupils Neck: Other: supple Neck: Yes normal visual inspection Chest: Chest palpation & inspection: normal inspection of the chest Resp: Auscultation: clear to auscultation bilaterally Cardio: Jugular venous distension: no JVD Rate: regular rate Rhythm: regular rhythm Heart sounds: S1 normal heart sound present and S2 normal heart sound present GI: Inspection: Yes normal to inspection Palpation (GI): Soft to palpation, nontender and No hepatosplenomegaly present Auscultation: normal bowel sounds : General: Yes no CVA tenderness Back/Spine/Pelvis: Back: no CVA tenderness Skin: General skin exam: no rashes or lesions noted Neuro: General: oriented to person and patient oriented x3 Cranial nerves: Yes CN's II-XII intact bilaterally Motor exam (neuro): 5/5 motor strength present throughout Sensory Exam: No Sensory deficit (Neuro) Extrem: General: Yes normal to inspection Psych: Appearance: grossly normal Course Reevaluation(s) Reevaluation #1: Seen by CARE team Time: 11:53 Reevaluation #2: more alert Time: 12:56 Discharge Plan Discharge Clinical Impression: Heroin abuse Patient Disposition: Home, Self-Care Instructions: Opioid Use Disorder (ED) Prescriptions: No Action oxcarbazepine 600 mg tablet 1 tab PO DAILY diazepam 10 mg tablet 1 tab PO BID PRN (Reason: Anxiety) prazosin 2 mg capsule 2 mg PO TID aripiprazole 20 mg tablet 20 mg PO DAILY duloxetine 60 mg capsule,delayed release(DR/EC) 60 mg PO DAILY lisdexamfetamine 60 mg Capsule 60 mg PO DAILY Rx Instructions: Last filled October 05, 2022. Pharmacy not able to get in stock. dicyclomine 20 mg tablet 10 - 20 mg PO BID PRN (Reason: abdominal pain) Qty: 20 0RF meloxicam 15 mg Tablet 15 mg PO DAILY gabapentin 300 mg Capsule 300 mg PO BEDTIME quetiapine 50 mg tablet See Rx Instructions .ROUTE .COMPLEX 14 Days Qty: 28 0RF Rx Instructions: 50 mg orally; take 1 tablet daily at bedtime; take 1/2 tablet po twice a day PRN anxiety/agitation quetiapine 100 mg tablet 100 mg PO BEDTIME 14 Days Qty: 14 0RF Referrals: Ann Smith PA [Primary Care Provider] - 1 week Print Language: Slovak
[2023-09-20 10:45] VITALS: BP 137/90; PULSE 105; RESP 16; TEMP 37.3; O2SAT 96; BMI 23.3
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
--- NOTE | 2023-09-20 12:17 | MHC.RECOVRN ---
Met with pt in [id number] after consult placed for [facility]. Pt had presented to the ED after heroin/fentanyl use, arousable to verbal stimuli, no Narcan given. Pt did not overdose. Pt laying in bed, asleep, wakes to voice and engages in conversation. Pt reports life stressors have led to recurrence in August 2023. Pt reports she has had to testify in court for restraining order against ex partner which has caused anxiety and significant stress. Pt reports she had been doing well after a new diagnosis of bipolar disorder and new medications. Pt reports she was engaged with [facility], psychiatry, therapy, and domestic violence counselor. Pt reports that around court date in August she had a recurrence and shortly after ran out of psychiatric medications. Pt reports last week she was able to connect with psychiatrist and has restarted meds and is feeling better and like she is close to getting back to a good trajectory. Pt reports she has been using cocaine, INH, 0.5 grams daily x 2 weeks. Pt reports cocaine counteracts my can. Pt reports use will decrease and cease now that she is back on appropriate medication. Pt also reports heroin/fentanyl use, approx 1 bag, IV, every 4 days. Pt reports this morning she used $10 cocaine and 1.5 bags heroin/fentanyl. Pt reports she was with her friend who became concerned due to patients irregular breathing due to asthma exacerbated by substance use. Pt reports intermittent use of opioids does not result in withdrawal symptoms. Discussed plan and recovery options. Pt is not interested in inpatient treatment at this time. Pt plans to continue working with outpatient providers and calling [facility] to reengage in [facility]. Pt is hopeful that being back on medications will assist with recovery. Pt declines referrals for treatment from t/w. Provided pt with resources as well as t/w contact information if needed. Pt denies questions or concerns. RN and provider aware.
[2023-09-20 13:20] VITALS: BP 110/72; PULSE 98; RESP 16; TEMP 36.8; O2SAT 99
== END 2023-09-20 13:39 | disposition home or self-care (01) ==
PROVIDERS: Emergency Provider Emergency Medicine; PCP Physician Assistant
DX: F11.10 Opioid abuse, uncomplicated (principal); J45.909 Unspecified asthma, uncomplicated; Z88.1 Allergy status to other antibiotic agents; Z88.2 Allergy status to sulfonamides; Z88.5 Allergy status to narcotic agent; Z88.8 Allergy status to other drugs, medicaments and biological substances
CPT/HCPCS: 99283; 99284